=== PATIENT | female | born 1945 | race Caucasian/White ===

== ENCOUNTER → 2016-06-27 | Outpatient (CLI) | payer MEDICARE | LOC: OD 14:51 | PROVIDERS: ATTEND Nurse Practitioner Adult Health | DX: F17.218 Nicotine dependence, cigarettes, with other nicotine-induced disorders (principal) | CPT/HCPCS: 71020 ==

== ENCOUNTER → 2016-06-27 | Outpatient (CLI) | payer MEDICARE, OTHER ==
[2016-06-27 16:21] LABS: ANION GAP 12 (5-19); BLOOD UREA NITROGEN 13 mg/dL (7-20); CALCIUM 9.7 mg/dL (8.4-10.2); CARBON DIOXIDE 26 mmol/L (22-30); CHLORIDE 103 mmol/L (98-107); CREATININE RESULT 0.78 mg/dL (0.52-1.25); GLUCOSE 112 mg/dL (75-110); POTASSIUM 4.8 mmol/L (3.6-5.0)
== END ==
LOC: OD 15:03
PROVIDERS: ATTEND Internal Medicine Nephrology
DX: E87.1 Hypo-osmolality and hyponatremia (principal)
CPT/HCPCS: 36415; 80048

== ENCOUNTER 2016-12-22 07:06 | Day surgery (SDC) | payer MEDICARE, OTHER ==
[~2016-12-22 07:06] MED LIST: DEXTROSE 5%-1/2 NORMAL SALINE 1,000 ML IV PRN
[2016-12-22] MEDS ORDERED: PROPOFOL INJ 200 MG/20 ML VIAL IV ONE (07:21)
[2016-12-22] MEDS ORDERED: ALBUTEROL SULFATE 0.083% NEB 2.5 MG/3 ML AMPUL NEB ONE (09:00)
[2016-12-22 10:29] VITALS: BP 141/74
--- NOTE | 2016-12-22 12:03 | Operative Report ---
Operative Report DATE OF SURGERY: 12/22/16 Operative Report: The risks, benefits and alternatives of the procedure including risks of bleeding, perforation requiring surgery are explained to the patient detail and informed consent was obtained. Patient was taken back to the operating room and placed in the left, lateral decubital position. Timeout was called. Propofol medications administered. A rectal examination was done which did not reveal any masses, tears or fissures. An Olympus videoscope was inserted into the patient's rectum. The scope was then carefully advanced all the way to the cecum. The cecum was identified by the usual anatomical landmarks including the ileocecal valve as well as the appendiceal office. Photodocumentation is obtained. Prep is good. The scope was then sequentially pulled back via the rest segments of the colon including the ascending colon, hepatic flexure, transverse colon, splenic flexure, descending colon, and finally to the rectosigmoid portions of the colon. Retroflexion maneuvers performed in the rectum. The risks benefits and alternatives of the procedure explained to the patient in detail and informed consent is obtained.A GIF Olympus video scope was inserted into the patient's mouth and hypopharynx, the esophagus is identified intubated and insufflated, the scope was then advanced through the esophagus stomach and duodenum ,retroflexion maneuver is done, the esophagus stomach and first and second portions of the duodenum examined PREOPERATIVE DIAGNOSIS: Personal history of polyps. Han's esophagus POSTOPERATIVE DIAGNOSIS: Right side inflammation noted in the ascending colon status post biopsy. Transverse colon polyp removed via biopsy forceps. Diverticulosis. Internal hemorrhoids. Gastritis status post biopsy. Han' s esophagus status post ablation OPERATION: Colonoscopy with biopsy. EGD with ablation. EGD with biopsy SURGEON: BURT ANDREWS ANESTHESIA: LMAC TISSUE REMOVED OR ALTERED: Specimens as noted above COMPLICATIONS: None. ESTIMATED BLOOD LOSS: None. INTRAOPERATIVE FINDINGS: As described above. PROCEDURE: Patient tolerated procedure well. No immediate postprocedure complications are noted. Patient discharged in good condition. Discharge date 12/22/2016. Discharge diet: Regular. Discharge activity: Regular. 2-3 week follow-up to discuss findings. Patient is instructed to call the office or proceed to the emergency room should there be any further problems or questions. We will wait on pathology. 5 year surveillance colonoscopy.
== END 2016-12-22 10:10 | disposition home or self-care (01) ==
LOC: OROUT 07:06
PROVIDERS: ATTEND Internal Medicine Gastroenterology
PROC: 0D558ZZ Destruction of Esophagus, Via Natural or Artificial Opening Endoscopic (ICD-10-PCS; 2016-12-22)
PROC: 0DB68ZX Excision of Stomach, Via Natural or Artificial Opening Endoscopic, Diagnostic (ICD-10-PCS; principal; 2016-12-22 09:00)
PROC: 0DBF8ZX Excision of Right Large Intestine, Via Natural or Artificial Opening Endoscopic, Diagnostic (ICD-10-PCS; 2016-12-22 09:00)
PROC: 0DBL8ZX Excision of Transverse Colon, Via Natural or Artificial Opening Endoscopic, Diagnostic (ICD-10-PCS; 2016-12-22 09:00)
DX: Z12.11 Encounter for screening for malignant neoplasm of colon (principal); D12.3 Benign neoplasm of transverse colon; K52.9 Noninfective gastroenteritis and colitis, unspecified; K64.8 Other hemorrhoids; K22.719 Barrett's esophagus with dysplasia, unspecified; K29.70 Gastritis, unspecified, without bleeding; I10 Essential (primary) hypertension; M19.90 Unspecified osteoarthritis, unspecified site; Z79.899 Other long term (current) drug therapy
CPT/HCPCS: 43270; 43239; 45380; 88305 ×2; J2704; 740

== ENCOUNTER → 2017-03-04 | Outpatient (CLI) | payer MEDICARE, OTHER ==
--- NOTE | 2017-03-05 12:54 | RADIOLOGY REPORT (SQ) ---
EXAM DESCRIPTION: PET CT LIMITED COMPLETED DATE/TIME: 03/04/2017 8:32 pm REASON FOR STUDY: ABNORMAL FINDINGS IN LUNG R91.8 OTHER NONSPECIFIC ABNORMAL FINDING OF LUNG FIELD COMPARISON: Report from CT chest [facility] 02/21/2017 CT chest on [facility] 04/22/2015 RADIONUCLIDE AND DOSE: 12.5 mCi F18 FDG The route of agent administration: Intravenous FASTING BLOOD SUGAR: 96 mg/dl CONTRAST TYPE AND DOSE: No CT contrast given. TECHNIQUE: Blood glucose level was verified. Above dose of FDG was injected intravenously. 2-D seg mented attenuation correction images were obtained from the base of the skull to the midthighs. Nonc ontrast CT images were obtained for attenuation correction and fusion with emission images. CT image s were performed without oral or intravenous contrast and are not sensitive for parenchymal lesions. A series of overlapping emission PET images were obtained. Images reviewed and manipulated at [facility] work station by the radiologist. Images stored on PACS. LIMITATIONS: None. FINDINGS: HEAD AND NECK: No areas of abnormal metabolic activity in the soft tissues of the head and neck. CHEST: No areas of abnormal metabolic activity in the chest. No worrisome lung nodules or mediastina l adenopathy. A 6 mm ill-defined nodule is present in the medial aspect left upper lobe axial image [address] chest 04/22/2015. This is non metabolic but under 1 cm in size. A 6 mm posterior right upper lobe nodule is present on axial image 65 unchanged from 04/22/2015. This is non metabolic but under 1 cm in size. The right middle lobe 11 mm ground-glass lesion described on CT 02/21/2017 is no longer identified on the current study. ABDOMEN AND PELVIS: No areas of abnormal metabolic activity in the abdomen or pelvis. Expected physi ologic activity is present in the genitourinary system and bowel. PROXIMAL LOWER EXTREMITIES: No areas of abnormal metabolic activity in the soft tissues of the lower extremities. BONES: No abnormal metabolic activity in the visualized skeleton. ADDITIONAL CT FINDINGS: Trace pericardial fluid. 2.7 cm simple cyst right upper pole kidney. Mildly hyperdense complex cysts in the right lower pole kidney 5 cm diameter and left mid pole kidney 2.8 c m in diameter. Correlation with dedicated renal ultrasound recommended for followup. Colonic divert iculosis without CT signs of acute diverticulitis. OTHER: Liver background activity 2.0 SUV. Blood pool background activity 1.5 SUV. IMPRESSION: No worrisome hypermetabolic lung lesions. Findings of concern on outside CT 02/21/2017 are less than 1 cm in size, small nodules less than 1 cm could have false negative fat results. If t he patient is a smoker or former smoker, recommend follow-up with low-dose screening chest CT in 12 [facility]. Incidental finding of complex cystic lesions in the right lower pole kidney and left mid pole kidney for which dedicated renal ultrasound is recommended for further characterization. TECHNICAL DOCUMENTATION: JOB ID: [id number] [employer]- All Rights Reserved
== END ==
LOC: RAD 17:55
PROVIDERS: ATTEND Nurse Practitioner
DX: R91.8 Other nonspecific abnormal finding of lung field (principal)
CPT/HCPCS: 78814; A9552

== ENCOUNTER → 2017-06-29 | Outpatient (CLI) | payer MEDICARE, OTHER ==
[2017-06-29 12:33] LABS: ANION GAP 7 (5-19); BLOOD UREA NITROGEN 12 mg/dL (7-20); CARBON DIOXIDE 26 mmol/L (22-30); CHLORIDE 105 mmol/L (98-107); GLUCOSE 82 mg/dL (75-110); POTASSIUM 4.2 mmol/L (3.6-5.0)
== END ==
LOC: OD 11:26
PROVIDERS: ATTEND Internal Medicine Nephrology
DX: E87.1 Hypo-osmolality and hyponatremia (principal)
CPT/HCPCS: 36415; 80048

== ENCOUNTER → 2017-07-12 | Outpatient (CLI) | payer MEDICARE, OTHER ==
--- NOTE | 2017-07-12 14:16 | RADIOLOGY REPORT (SQ) ---
EXAM DESCRIPTION: CT RT LOWER EXTREMITY WITHOUT COMPLETED DATE/TIME: 07/12/2017 2:04 pm REASON FOR STUDY: RIGHT HIP PAIN (M25.551) M25.551 PAIN IN RIGHT HIP COMPARISON: PET-CT 03/04/2017 TECHNIQUE: CT scan of the right hip performed without intravenous or oral contrast. Images reviewed with soft tissue and bone windows. Reconstructed coronal and sagittal MPR images reviewed. All [facility] stored on PACS. Additional shaded surface display imaging of the right hip was generated on an independent workstatio n. All CT scanners at this facility use dose modulation, iterative reconstruction, and/or weight based d osing when appropriate to reduce radiation dose to as low as reasonably achievable (ALARA). [facility]: Dose Right [facility]: CareDose [facility]: Dose Right [facility]: Teradose 4D [facility]: [employer] RADIATION DOSE: CT Rad equipment meets quality standard of care and radiation dose reduction techniq ues were employed. CTDIvol: 6.4 mGy. DLP: 154 mGy-cm. mGy. LIMITATIONS: None. FINDINGS: Grossly normal bone density. No fracture or lytic or blastic lesion over the right hemipe lvis or right proximal femur in the field of view. Mild right hip joint space narrowing without bulky bony spurring. No radiopaque intra-articular loos e bodies. Soft tissue windows show node right hip joint effusion or iliopsoas bursa fluid collection. Limited view of the organs in the pelvis demonstrates sigmoid colon diverticuli without CT signs of a cute diverticulitis. IMPRESSION: No fracture. No lytic or blastic lesions. Mild right hip joint space narrowing TECHNICAL DOCUMENTATION: JOB ID: [id number] Quality ID # [id number]: Final reports with documentation of one or more dose reduction techniques (e.g., Au tomated exposure control, adjustment of the mA and/or kV according to patient size, use of iterative reconstruction technique) 2010 [employer]- All Rights Reserved Reading location - IP/workstation name: [email or web address]
== END ==
LOC: RAD 13:40
PROVIDERS: ATTEND Family Medicine
DX: M25.551 Pain in right hip (principal)

== ENCOUNTER → 2017-08-20 | Outpatient (CLI) | payer MEDICARE, OTHER ==
--- NOTE | 2017-08-20 14:03 | RADIOLOGY REPORT (SQ) ---
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 Coronal T2/ HASTE imaging. LIMITATIONS: None. FINDINGS: VISUALIZED UPPER ABDOMEN: Bilateral renal cysts. SEGMENTATION: No transitional anatomy. The lowest well-developed disc space is labeled L5-S1. ALIGNMENT: Anatomic. VERTEBRAE: Intact. BONE MARROW: There is diffuse marrow edema throughout the sacrum, best shown on axial series 7, image s 19-27, and additional axial STIR images 6 through 11. This is most likely related the sacral insuf ficiency fracture which is subacute and nondisplaced. Marrow signal in the adjacent innominate bones is normal. No marrow signal abnormalities worrisome for acute lumbar spine vertebral body compressi on fracture. DISC SIGNAL: Diffuse decreased T2 weighted intervertebral disc signal POSTERIOR ELEMENTS: Generally intact. No pars defect evident. HARDWARE: None in the spine. CORD AND CONUS: Normal in size and signal intensity. Conus at the T12 level. SOFT TISSUES: No aortic aneurysm seen. No bulky retroperitoneal adenopathy or mass. No paraspinal mas s or fluid. T11-12: At the upper edge of the field of view. No central or foraminal stenosis. T12-L1: No central or foraminal stenosis. L1-L2: No central or foraminal stenosis. Mild bilateral facet arthropathy. L2-L3: No central or foraminal stenosis. Mild posterior disc bulging, mild bilateral facet arthropat hy L3-L4: Borderline central canal narrowing. Mild diffuse posterior disc bulging. Moderate bilateral facet and ligament hypertrophy. There is mild bilateral inferior foraminal narrowing without exiting L3 nerve root impingement. L4-L5: Moderate to marked central canal stenosis results from broad diffuse posterior disc bulge and bony spurring and bulky bilateral facet and ligament hypertrophy. There is effacement of the CSF maritza und the lumbar nerve roots at L4-5 best shown on axial T2 image 23. Mild bilateral foraminal narrowi ng is present without exiting L4 nerve root impingement. L5-S1: Minimal posterior disc bulging, bulky bilateral facet hypertrophy. Con joint right L5 and S1 nerve root. No central stenosis. Mild right foraminal narrowing and mild left foraminal narrowing f rom facet hypertrophy without exiting L5 nerve root impingement. SACRUM: There is diffuse sacral marrow edema from sacral insufficiency fractures. This report was ca lled to Dr. Mccarthy, 1400 hours 08/20/2017. OTHER: No other significant findings. IMPRESSION: Sacral insufficiency fracture Moderate to marked central canal stenosis at L4-5 TECHNICAL DOCUMENTATION: JOB ID: [id number] [employer]- All Rights Reserved Reading location - IP/workstation name: [email or web address]
== END ==
LOC: RAD 13:51
PROVIDERS: ATTEND Family Medicine
DX: M51.36 Other intervertebral disc degeneration, lumbar region (principal)
CPT/HCPCS: 72148

== ENCOUNTER 2019-06-27 14:34 | Emergency (ER) | payer MEDICARE, OTHER ==
--- NOTE | 2019-06-27 14:41 | ER Document Report ---
ED Medical Screen (RME) - General Chief Complaint: Abnormal Lab Results Stated Complaint: ABNORMAL LABS - DR REFERRED Time Seen by Provider: 06/27/19 14:38 Primary Care Provider: LARON FLETCHER MD [Primary Care Provider] - Follow up as needed Mode of Arrival: Ambulatory Information source: Patient Notes: 74-year-old female presents to ED for abnormal labs. Daughter is with her who states she lives with her. She states she has been telling her mother that she has been acting different for several days. She states when she gets low sodium she acts this way and she has been trying to convince her to come to the hospital or to the doctor. She states she has had a sodium deficiency in the past and acted the same way. She is alert oriented respirations regular nonlabored speaking in full sentences. Daughter states that she was septic one time and acted the same way and did not come until she forced her to come. She was sent by her doctor today for low calcium and low sodium. States she drinks between 1-4 beer a day, smokes a pack a day, no illicit drugs. I have greeted and performed a rapid initial assessment of this patient. A comprehensive ED assessment and evaluation of the patient, analysis of test results and completion of medical decision making process will be conducted by an additional ED providers. TRAVEL OUTSIDE OF THE [place] IN LAST 30 DAYS: No - Related Data Allergies/Adverse Reactions: chlorpromazine HCl [From Thorazine] Allergy (Severe, Verified 12/22/16 07:40) Chest pain quinine [Quinine] Allergy (Intermediate, Verified 12/22/16 07:40) Hives Past Medical History - Past Medical History Cardiac Medical History: Reports: Hx Hypercholesterolemia, Hx Hypertension - PRESENTLY ON MEDS Denies: Hx Coronary Artery Disease, Hx Heart Attack Pulmonary Medical History: Denies: Hx Asthma, Hx Bronchitis, Hx COPD, Hx Pneumonia Neurological Medical History: Denies: Hx Cerebrovascular Accident, Hx Seizures GI Medical History: Reports: Hx Gastroesophageal Reflux Disease Musculoskeltal Medical History: Reports Hx Arthritis Psychiatric Medical History: Reports: Hx Depression Past Surgical History: Reports: Hx Urinary Tract Surgery. Denies: Hx Hysterectomy - Immunizations Hx Diphtheria, Pertussis, Tetanus Vaccination: Yes Doctor's Discharge - Discharge Referrals: LARON FLETCHER MD [Primary Care Provider] - Follow up as needed
[2019-06-27 14:44] VITALS: BP 136/64
[2019-06-27 15:14] LABS: ABSOLUTE BASOPHILS # (AUTO) 0.1 10^3/uL (0.0-0.2); ABSOLUTE EOSINOPHILS # (AUTO) 0.8 10^3/uL (0.0-0.6); ABSOLUTE MONOCYTES (AUTO) 0.6 10^3/uL (0.1-1.4); BASOPHILS % (AUTO) 1.1 % (0-2); EOSINOPHILS % (AUTO) 10.3 % (0-6); HEMATOCRIT 37.8 % (36.0-47.0); HEMOGLOBIN 13.5 g/dL (12.0-15.5); LYMPHOCYTES % (AUTO) 27.5 % (13-45); MEAN CORPUSCULAR HEMOGLOBIN 31.4 pg (27.0-33.4); MEAN CORPUSCULAR HGB CONC 35.6 g/dL (32.0-36.0); MEAN CORPUSCULAR VOLUME 88 fl (80-97); MONOCYTES % (AUTO) 7.6 % (3-13); PLATELET COUNT 329 10^3/uL (150-450); RED BLOOD COUNT 4.29 10^6/uL (3.72-5.28); RED CELL DISTRIBUTION WIDTH 14.2 % (11.5-14.0); SEGMENTED NEUTROPHILS % (AUTO) 53.5 % (42-78); TOTAL CELLS COUNTED % (AUTO) 100 %; WHITE BLOOD COUNT 7.5 10^3/uL (4.0-10.5)
[2019-06-27 15:23] LABS: APPEARANCE,URINE CLEAR; BILIRUBIN,URINE NEGATIVE (NEGATIVE); COLOR,URINE YELLOW; GLUCOSE, URINE NEGATIVE (NEGATIVE); KETONES,URINE NEGATIVE (NEGATIVE); PROTEIN,URINE 30 mg/dL (NEGATIVE); URINE SPECIFIC GRAVITY 1.017; UROBILINOGEN,URINE NEGATIVE mg/dL (<2.0)
[2019-06-27 15:29] LABS: ALBUMIN 4.4 g/dL (3.5-5.0); ALKALINE PHOSPHATASE 83 U/L (38-126); ANION GAP 12 (5-19); ASPARTATE AMINO TRANSFERASE 26 U/L (14-36); BILIRUBIN,TOTAL 0.4 mg/dL (0.2-1.3); BLOOD UREA NITROGEN 7 mg/dL (7-20); CALCIUM 9.4 mg/dL (8.4-10.2); CARBON DIOXIDE 25 mmol/L (22-30); CHLORIDE 86 mmol/L (98-107); GLUCOSE 116 mg/dL (75-110); POTASSIUM 4.2 mmol/L (3.6-5.0); TOTAL PROTEIN 7.4 g/dL (6.3-8.2)
[2019-06-27] MEDS ORDERED: SODIUM CHLORIDE 1 GM TABLET PO ONE ×2 (16:17→16:43)
--- NOTE | 2019-06-27 16:29 | ER Document Report ---
ED General - General Chief Complaint: Abnormal Lab Results Stated Complaint: ABNORMAL LABS - DR REFERRED Time Seen by Provider: 06/27/19 14:38 Primary Care Provider: LARON FLETCHER MD [COMMUNITY BASED STAFF] - Follow up as needed Mode of Arrival: Ambulatory Notes: 74-year-old woman presents to the emergency department with a history of sent to the emergency department because her sodium was found to be 124 in the doctor's office lab report. Patient and daughter states that they were called and told to come to the emergency department because of the abnormal lab. Daughter notes that her mom has had low sodiums in the past and had previously been on sodium tablets, tomato juice twice daily and added salt to her food. Approximately 1 year ago she got a new physician and after some evaluation the decision was made to discontinue the sodium. She denies dizziness, headache, seizures or shakiness. Daughter notes that her mom has complained of some fatigue and at times seems a little confused. TRAVEL OUTSIDE OF THE [place] IN LAST 30 DAYS: No - Related Data Allergies/Adverse Reactions: chlorpromazine HCl [From Thorazine] Allergy (Severe, Verified 12/22/16 07:40) Chest pain quinine [Quinine] Allergy (Intermediate, Verified 12/22/16 07:40) Hives Past Medical History - General Information source: Patient - Social History Smoking Status: Current Every Day Smoker Chew tobacco use (# tins/day): No Frequency of alcohol use: Heavy Drug Abuse: None Family History: Reviewed & Not Pertinent Patient has suicidal ideation: No Patient has homicidal ideation: No - Past Medical History Cardiac Medical History: Reports: Hx Hypercholesterolemia, Hx Hypertension - PRESENTLY ON MEDS Denies: Hx Coronary Artery Disease, Hx Heart Attack Pulmonary Medical History: Denies: Hx Asthma, Hx Bronchitis, Hx COPD, Hx Pneumonia Neurological Medical History: Denies: Hx Cerebrovascular Accident, Hx Seizures GI Medical History: Reports: Hx Gastroesophageal Reflux Disease Musculoskeletal Medical History: Reports Hx Arthritis Psychiatric Medical History: Reports: Hx Depression Past Surgical History: Reports: Hx Urinary Tract Surgery. Denies: Hx Hysterectomy - Immunizations Hx Diphtheria, Pertussis, Tetanus Vaccination: Yes Hx Pneumococcal Vaccination: 02/07/15 Review of Systems - Review of Systems Notes: Constitutional: Negative for fever. HENT: Negative for sore throat. Eyes: Negative for visual changes. Cardiovascular: Negative for chest pain. Respiratory: Negative for shortness of breath. Gastrointestinal: Negative for abdominal pain, vomiting or diarrhea. Genitourinary: Negative for dysuria. Musculoskeletal: Negative for back pain. Skin: Negative for rash. Neurological: Negative for headaches, weakness or numbness. 10 point ROS negative except as marked above and in HPI. Physical Exam - Vital signs Vitals: Temp Pulse Resp BP Pulse Ox 97.5 F 86 17 136/64 H 97 06/27/19 14:41 06/27/19 14:41 06/27/19 14:41 06/27/19 14:41 06/27/19 14:41 - Notes Notes: PHYSICAL EXAMINATION: Physical Exam: General: Well-nourished well-developed 74-year-old woman in no acute distress HEENT: NC/AT, pupils equal round and reactive to light, MM moist,nares clear, oropharynx clear, airway patent Neck: supple, no adenopathy, no masses. Good range of motion Lungs: clear, no wheezing, no rales no rhonchi CVS: Regular rate and rhythm no murmur gallop or rub Abdomen: Soft, active, nontender, no masses, no hepatosplenomegaly Ext: No edema, clubbing or cyanosis. Neuro: Alert and responsive, moving all 4 extremities on command, cranial nerves intact, no focal findings Skin: Intact no open lesions, no rash PSYCH: Normal mood, normal affect. Course - Re-evaluation Re-evalutation: 06/27/19 16:31 Patient is given a gram of sodium via a sodium tablet today. I discussed with her liberalizing her sodium intake and also using the tomato juice. Apparently have a sodium prescription there are pharmacy, however, the pharmacy did not have the medication and it has to be ordered will not be available until Sunday. - Vital Signs Vital signs: Temp Pulse Resp BP Pulse Ox 97.5 F 86 17 136/64 H 97 06/27/19 14:41 06/27/19 14:41 06/27/19 14:41 06/27/19 14:41 06/27/19 14:41 - Laboratory Result Diagrams: 06/27/19 14:56 06/27/19 14:56 Laboratory results interpreted by me: 06/27/19 06/27/19 06/27/19 14:56 14:56 14:56 RDW 14.2 H Eos % (Auto) 10.3 H Absolute Eos (auto) 0.8 H Sodium 123.1 L Chloride 86 L Glucose 116 H Urine Protein 30 H Discharge - Discharge Clinical Impression: Alcohol abuse, Hyponatremia Condition: Good Disposition: HOME, SELF-CARE Instructions: Hyponatremia ([facility]) Additional Instructions: You were diagnosed with a low sodium in the emergency department today, please restrict your intake of fluids, liberalize your salt intake and may add sodium to your food. Please follow-up with your doctor next week for a repeat sodium level. If you develop symptoms, other concerns or difficulties you may return to the emergency department. Referrals: LARON FLETCHER MD [COMMUNITY BASED STAFF] - Follow up as needed
== END 2019-06-27 17:05 | disposition home or self-care (01) ==
LOC: ER 14:34
DX: F10.10 Alcohol abuse, uncomplicated (principal); E87.1 Hypo-osmolality and hyponatremia; F17.200 Nicotine dependence, unspecified, uncomplicated; E78.00 Pure hypercholesterolemia, unspecified
CPT/HCPCS: 99283; 36415; 83735; 85025; 80053; 81001; A9270; J3490

== ENCOUNTER → 2019-08-05 | Outpatient (CLI) | payer MEDICARE, OTHER ==
[2019-08-05 10:32] LABS: ANION GAP 9 (5-19); BLOOD UREA NITROGEN 17 mg/dL (7-20); CALCIUM 9.2 mg/dL (8.4-10.2); CARBON DIOXIDE 27 mmol/L (22-30); CHLORIDE 92 mmol/L (98-107); GLUCOSE 108 mg/dL (75-110); POTASSIUM 4.7 mmol/L (3.6-5.0)
== END ==
LOC: OD 09:38
PROVIDERS: ATTEND Internal Medicine Nephrology
DX: I10 Essential (primary) hypertension (principal); E87.1 Hypo-osmolality and hyponatremia
CPT/HCPCS: 36415; 80048

== ENCOUNTER → 2019-08-12 | Outpatient (CLI) | payer MEDICARE, OTHER ==
[2019-08-12 11:12] LABS: ANION GAP 8 (5-19); BLOOD UREA NITROGEN 13 mg/dL (7-20); CALCIUM 8.9 mg/dL (8.4-10.2); CARBON DIOXIDE 25 mmol/L (22-30); CHLORIDE 92 mmol/L (98-107); GLUCOSE 98 mg/dL (75-110); POTASSIUM 4.5 mmol/L (3.6-5.0)
== END ==
LOC: OD 09:28
PROVIDERS: ATTEND Internal Medicine Nephrology
DX: E87.1 Hypo-osmolality and hyponatremia (principal); I10 Essential (primary) hypertension
CPT/HCPCS: 36415; 80048

== ENCOUNTER → 2019-08-19 | Outpatient (CLI) | payer MEDICARE, OTHER ==
[2019-08-19 11:28] LABS: ANION GAP 7 (5-19); BLOOD UREA NITROGEN 11 mg/dL (7-20); CALCIUM 8.9 mg/dL (8.4-10.2); CARBON DIOXIDE 27 mmol/L (22-30); CHLORIDE 98 mmol/L (98-107); GLUCOSE 98 mg/dL (75-110); POTASSIUM 4.2 mmol/L (3.6-5.0)
== END ==
LOC: OD 10:16
PROVIDERS: ATTEND Internal Medicine Nephrology
DX: E87.1 Hypo-osmolality and hyponatremia (principal); I10 Essential (primary) hypertension
CPT/HCPCS: 36415; 80048

== ENCOUNTER 2019-10-02 10:23 | Inpatient (IN) | payer MEDICARE, OTHER ==
[2019-10-02] MEDS ORDERED: MAG HYDROX/AL HYDROX/SIMETH SUSP 30 ML UDCUP PO PRN (11:59)
[2019-10-02] MEDS ORDERED: MAGNESIUM HYDROXIDE SUSP 30 ML UDCUP PO PRN (11:59)
[2019-10-02] MEDS ORDERED: ACETAMINOPHEN 325 MG TABLET PO PRN (11:59)
[2019-10-02] MEDS ORDERED: IPRATROPIUM/ALBUTEROL 0.5-2.5 MG/3 ML AMPUL NEB PRN (11:59)
[2019-10-02] MEDS ORDERED: TRAZODONE HCL 50 MG TABLET PO PRN (12:07)
[2019-10-02] MEDS ORDERED: POLYETHYLENE GLYCOL 3350 POWDER 17 GM/1 PACKET PO PRN (12:07)
[2019-10-02] MEDS ORDERED: NICOTINE 21 MG/24 HR PATCH.TD24 TD PRN (12:16)
--- NOTE | 2019-10-02 12:25 | PDOC H&P ---
History of Present Illness Admission Date/PCP: 10/02/19 10:23 MAHAD SALAZRA MD Patient complains of: Hyponatremia History of Present Illness: SAE NORRIS is a 74 year old female referred by Dr. Salazar for direct admission to initiate tolvaptan therapy. She has a history of hyponatremia as well as hypertension, depression, insomnia, gastroesophageal reflux disease, allergies and a smokers cough. She states that she felt woozy earlier and her blood pressure in fact is low today. She will be admitted and monitored with daily laboratory studies for the initiation of tolvaptan therapy. Her demeclocycline will be discontinued. We will continue the remainder of her medications including pain medications for a recent right carpal tunnel surgery. Past Medical History Cardiac Medical History: Reports: Hyperlipidema, Hypertension - PRESENTLY ON MEDS Denies: Coronary Artery Disease, Myocardial Infarction Pulmonary Medical History: Reports: Chronic Obstructive Pulmonary Disease (COPD) Denies: Asthma, Bronchitis, Pneumonia Neurological Medical History: Denies: Seizures Renal/ Medical History: Reports: Other - Hyponatremia GI Medical History: Reports: Gastroesophageal Reflux Disease Musculoskeltal Medical History: Reports: Arthritis Psychiatric Medical History: Reports: Depression, Tobacco Dependency Hematology: Denies: Anemia Infectious Medical History: Reports: None Past Surgical History Past Surgical History: Reports: Orthopedic Surgery - Right carpal tunnel, Tonsillectomy, Tubal Ligation, Other - Breast biopsy Denies: Hysterectomy, Pacemaker Social History Information Source: Patient, Outside Facility Records Lives with: Alone Smoking Status: Current Every Day Smoker Cigarettes Packs Per Day: 1 Electronic Cigarette use?: No Frequency of Alcohol Use: None Hx Recreational Drug Use: No Drugs: None Hx Prescription Drug Abuse: No - Advance Directive Resuscitation Status: Full Code Surrogate healthcare decision maker:: Has a power of commercial litigation attorney Family History Family History: Hypertension, Malignancy, Other - Dementia, osteoporosis, Parental Family History Reviewed: Yes Children Family History Reviewed: Yes Sibling(s) Family History Reviewed.: Yes Medication/Allergy Home Medications: Cetirizine HCl [Zyrtec 10 mg Tablet] 10 mg PO DAILY 02/28/14 Montelukast Sodium [Singulair 10 mg Tablet] 10 mg PO QHS 02/28/14 Folic Acid [Folvite 1 mg Tablet] 1 mg PO DAILY #30 tablet 03/03/14 Amlodipine Besylate 5 mg PO DAILY 04/15/15 Lisinopril 20 mg PO QHS 04/15/15 Olanzapine [Zyprexa 2.5 mg Tablet] 7.5 mg PO QHS 04/15/15 Demeclocycline HCl [Declomycin] 150 mg PO Q12 12/20/16 Bupropion HCl [Bupropion Xl] 150 mg PO DAILY 07/08/19 Cyanocobalamin (Vitamin B-12) [Vitamin B-12 1000 mcg Tablet] 1,000 mcg PO DAILY 07/08/19 Ergocalciferol (Vitamin D2) [Drisdol 50,000 unit (1.25MG) Capsule] 50,000 unit PO .Sun OF MONTH 07/08/19 Fluticasone Propionate [Flonase Nasal Leonidas 50 Mcg/Leonidas 16 gm] 1 spray NAREB Q12 07/08/19 Omeprazole 20 mg PO QAM 07/08/19 Thiamine HCl [Thiamine 100 mg Tablet] 100 mg PO DAILY 07/08/19 Acetaminophen [Tylenol 325 mg Tablet] 650 mg PO Q4HP PRN tablet 07/12/19 Aspirin [Ecotrin 81 mg EC Tablet] 81 mg PO DAILY tabec 07/12/19 Docusate Sodium [Colace 100 mg Capsule] 100 mg PO DAILY capsule 07/12/19 Mag Hydrox/Al Hydrox/Simeth [Maalox Plus Susp 30 Udcup] 30 ml PO Q6HP PRN udc 07/12/19 Multivitamin [Tab-A-Caryl (Multiple Vitamin) Tablet] 1 tab PO DAILY tablet 07/12/19 Paroxetine HCl [Paxil 20 mg Tablet] 20 mg PO DAILY 30 Days #30 tablet 07/12/19 Trazodone HCl 25 mg PO QHS 30 Days #15 tablet 07/12/19 Allergies/Adverse Reactions: chlorpromazine HCl [From Thorazine] Allergy (Severe, Verified 12/22/16 07:40) Chest pain quinine [Quinine] Allergy (Intermediate, Verified 12/22/16 07:40) Hives Review of Systems All systems: reviewed and no additional remarkable complaints except as stated Constitutional: PRESENT: other - Lightheaded Respiratory: PRESENT: cough Gastrointestinal: PRESENT: constipation Musculoskeletal: PRESENT: other - Right wrist pain Psychiatric: PRESENT: depression Allergic/Immunologic: PRESENT: seasonal rhinorrhea Physical Exam General appearance: PRESENT: no acute distress, cooperative, well-developed Head exam: PRESENT: atraumatic, normocephalic Eye exam: PRESENT: conjunctiva pale, EOMI. ABSENT: scleral icterus Ear exam: PRESENT: normal external ear exam. ABSENT: bleeding, drainage Mouth exam: PRESENT: moist, tongue midline Neck exam: ABSENT: JVD, lymphadenopathy, thyromegaly, tracheostomy Respiratory exam: PRESENT: clear to auscultation zamzam, symmetrical, unlabored. ABSENT: accessory muscle use, prolonged expiratory phas, rales, rhonchi, tachypnea, wheezes Cardiovascular exam: PRESENT: RRR, +S1, +S2, systolic murmur - 2/6. ABSENT: diastolic murmur, irregular rhythm GI/Abdominal exam: PRESENT: normal bowel sounds, soft. ABSENT: distended, guarding, tenderness Rectal exam: PRESENT: deferred Gentrourinary exam: ABSENT: indwelling catheter Extremities exam: ABSENT: joint swelling, pedal edema Musculoskeletal exam: PRESENT: ambulatory, normal inspection. ABSENT: deformity Neurological exam: PRESENT: alert, awake, oriented to person, oriented to place, oriented to situation, CN II-XII grossly intact. ABSENT: altered Psychiatric exam: PRESENT: appropriate affect. ABSENT: agitated, anxious Focused psych exam: ABSENT: delusional, paranoid, restlessness Skin exam: PRESENT: dry, normal color, warm. ABSENT: rash Assessment and Plan - Diagnosis (1) Hyponatremia Is this a current diagnosis for this admission?: Yes Plan: 10/02/2019 Dr. Salazar has been treating the patient for chronic hyponatremia. It was felt to be due to excessive beer intake initially. Patient reports that she is no longer drinking beer. Her sodium was still only 122. Dr. Salazar had her on demeclocycline but this has not been as effective as she had hoped. The patient is being hospitalized to initiate a trial of tolvaptan. We will need to monitor her serum sodium correction as well as LFTs for potential adverse effect of the medication. (2) Hypertension Qualifiers: Hypertension type: essential hypertension Qualified Code(s): I10 - Essential (primary) hypertension Is this a current diagnosis for this admission?: Yes Plan: 10/02/2019 Patient is normally on amlodipine and lisinopril. Her blood pressure was actually low at the time of admission. She will be getting IV fluids. I did put parameters to hold the amlodipine and lisinopril if her blood pressure was below a certain level. Continue to monitor vital signs. (3) Hyperkalemia Is this a current diagnosis for this admission?: Yes Plan: 10/02/2019 The hyperkalemia is mild. She will be getting intravenous fluids and therefore no Kayexalate at this time but I would rather repeat her chemistries in the morning. In addition she does take lisinopril for her hypertension and this could be contributing to elevated serum potassium levels. (4) Allergic rhinitis Qualifiers: Allergic rhinitis trigger: unspecified Allergic rhinitis seasonality: unspecified Qualified Code(s): J30.9 - Allergic rhinitis, unspecified Is this a current diagnosis for this admission?: Yes Plan: 10/02/2019 The patient is on Flonase and Singulair. She reports no inhaler usage at home. She still smokes 1 pack of cigarettes daily. This may be contributing to the chronic rhinitis. We will continue the Flonase and Singulair at this time. (5) Hypoalbuminemia Is this a current diagnosis for this admission?: Yes Plan: 10/02/2019 Mildly decreased albumin. No need for intravenous albumin at this time. We will continue to monitor. Possibly related to chronic illness, her history of alcohol use and elevated transaminases. (6) Insomnia Qualifiers: Insomnia type: unspecified Qualified Code(s): G47.00 - Insomnia, unspecified Is this a current diagnosis for this admission?: Yes Plan: 10/02/2019 The patient reports a long history of difficulty sleeping. We will continue her trazodone 50 mg at bedtime if needed. Zyprexa can also have a sedating effect. (7) Right wrist pain Is this a current diagnosis for this admission?: Yes Plan: 10/02/2019 From recent carpal tunnel surgery. We will continue the oxycodone at 5 mg. The patient also has gabapentin available as needed. If the oxycodone is not effective I will resume the gabapentin. (8) Chronic depression Is this a current diagnosis for this admission?: Yes Plan: 10/02/2019 Continue bupropion and Zyprexa for an anxiety component (9) Tobacco dependence due to cigarettes Is this a current diagnosis for this admission?: Yes Plan: 10/02/2019 Nicotine patch (10) Gastroesophageal reflux disease Qualifiers: Esophagitis presence: without esophagitis Qualified Code(s): K21.9 - Gastro-esophageal reflux disease without esophagitis Is this a current diagnosis for this admission?: Yes Plan: 10/02/2019 Continue Protonix (11) Elevated transaminase level Is this a current diagnosis for this admission?: Yes Plan: 10/02/2019 We will monitor LFTs especially since the potential side effect of tolvaptan is liver irritation. - Time Time Spent with patient: 35 or more minutes Smoking Cessation Education: 3 to 10 minutes Medications reviewed and adjusted accordingly: Yes Anticipated discharge: Home - Inpatient Certification Based on my medical assessment, after consideration of the patient's comorbidities, presenting symptoms, or acuity I expect that the services needed warrant INPATIENT care.: Yes I certify that my determination is in accordance with my understanding of Medicare's requirements for reasonable and necessary INPATIENT services [42 CFR 412.3e].: Yes Medical Necessity: Need Close Monitoring Due to Risk of Patient Decompensation, Need For IV Fluids, Need for Pain Control, Risk of Complication if Not Cared For in Hospital Post Hospital Care: D/C Home Hospice Rn Documentation
[2019-10-02 13:07] LABS: ABSOLUTE EOSINOPHILS # (AUTO) 0.2 10^3/uL (0.0-0.6); ABSOLUTE LYMPHOCYTES (AUTO) 1.1 10^3/uL (0.5-4.7); ABSOLUTE MONOCYTES (AUTO) 0.3 10^3/uL (0.1-1.4); ABSOLUTE NEUT (AUTO) 3.8 10^3/uL (1.7-8.2); BASOPHILS % (AUTO) 0.3 % (0-2); EOSINOPHILS % (AUTO) 2.9 % (0-6); HEMATOCRIT 32.9 % (36.0-47.0); HEMOGLOBIN 11.4 g/dL (12.0-15.5); LYMPHOCYTES % (AUTO) 19.9 % (13-45); MEAN CORPUSCULAR HEMOGLOBIN 30.8 pg (27.0-33.4); MEAN CORPUSCULAR HGB CONC 34.7 g/dL (32.0-36.0); MEAN CORPUSCULAR VOLUME 89 fl (80-97); MONOCYTES % (AUTO) 6.4 % (3-13); PLATELET COUNT 346 10^3/uL (150-450); RED BLOOD COUNT 3.72 10^6/uL (3.72-5.28); RED CELL DISTRIBUTION WIDTH 14.9 % (11.5-14.0); SEGMENTED NEUTROPHILS % (AUTO) 70.5 % (42-78); TOTAL CELLS COUNTED % (AUTO) 100 %; WHITE BLOOD COUNT 5.4 10^3/uL (4.0-10.5)
[2019-10-02 13:36] LABS: ALBUMIN 3.1 g/dL (3.5-5.0); ALKALINE PHOSPHATASE 54 U/L (38-126); ASPARTATE AMINO TRANSFERASE 74 U/L (14-36); BILIRUBIN,DIRECT 0.1 mg/dL (0.0-0.4); BILIRUBIN,TOTAL 0.4 mg/dL (0.2-1.3); BLOOD UREA NITROGEN 18 mg/dL (7-20); CALCIUM 8.9 mg/dL (8.4-10.2); GLUCOSE 95 mg/dL (75-110); POTASSIUM 5.2 mmol/L (3.6-5.0); TOTAL PROTEIN 5.9 g/dL (6.3-8.2)
[2019-10-02 13:42] LABS: ANION GAP 7 (5-19); CARBON DIOXIDE 23 mmol/L (22-30); CHLORIDE 93 mmol/L (98-107)
[2019-10-02] MEDS: HEPARIN SOD (PORCINE) 5,000 UNIT/ML 1 ML VIAL SUBCUT SCH ×4 (14:00→22:43)
[2019-10-02] MEDS: NORMAL SALINE 1000 ML 1,000 ML IV ONE ×2 (14:25→15:42)
[2019-10-02] MEDS: NORMAL SALINE 1000 ML 1,000 ML IV PRN ×2 (14:31→22:33)
[2019-10-02] MEDS: TOLVAPTAN 15 MG TABLET PO SCH (14:32)
[2019-10-02 15:04] LABS: APPEARANCE,URINE CLEAR; BILIRUBIN,URINE NEGATIVE (NEGATIVE); COLOR,URINE YELLOW; GLUCOSE, URINE NEGATIVE (NEGATIVE); KETONES,URINE NEGATIVE (NEGATIVE); PROTEIN,URINE NEGATIVE (NEGATIVE); URINE SPECIFIC GRAVITY 1.015; UROBILINOGEN,URINE NEGATIVE mg/dL (<2.0)
--- NOTE | 2019-10-02 15:50 | PDOC CONSULTATION ---
Consultation Consult Date: 10/02/19 Provider Consulted: Priya DALE Consult reason:: Hyponatremia History of Present Illness Admission Date/PCP: 10/02/19 10:23 MAHAD SALAZAR MD History of Present Illness: SAE NORRIS is a 74 year old female with history of severe hyponatremia, several hospital admissions and previous beer drinking (3 per day), copd and current smoker. She was directly admitted into the hospital per Dr. Salazar's request due to hyponatremia and a sodium of 123. She is a well known patient to Dr. Salazar. She previously was on demeclocycline 2 tabs bid. She has recently decreased it on her own to one table qd. At the time the sodium was in the low 120s when her primary care checked it. That was when she was called by our office and told to increase her demeclocycline back to her prescribed dose of 2 bid. She was then to repeat it, which is where the 123 sodium was from. At that time she was directed to the hospital for admission, which is where she is now. She claims to be doing well. She currently has no s/s of hyponatremia. She denies nausea, vomiting or weakness. Besides not taking her medication as prescribed, she denies diarrhea, previous n/v, drinking alcohol again. She claims to have not drank in over two months. She admits to drinking no more than 40 ounces of water a day. She does still drink 3 10ounce cans of tomato juice a day. Past Medical History Cardiac Medical History: Reports: Hyperlipidemia Denies: Coronary Artery Disease, Myocardial Infarction Pulmonary Medical History: Reports: Chronic Obstructive Pulmonary Disease (COPD) Denies: Asthma, Bronchitis, Pneumonia Neurological Medical History: Denies: Seizures Renal/ Medical History: Reports: Other - Hyponatremia GI Medical History: Reports: Gastroesophageal Reflux Disease Musculoskeltal Medical History: Reports: Arthritis Psychiatric Medical History: Reports: Depression, Tobacco Dependency Infectious Medical History: Reports: None Past Surgical History Past Surgical History: Reports: Orthopedic Surgery - Right carpal tunnel, Tonsillectomy, Tubal Ligation, Other - Breast biopsy Denies: Hysterectomy, Pacemaker Social History Lives with: Alone Smoking Status: Current Every Day Smoker Cigarettes Packs Per Day: 1 Electronic Cigarette use?: No Frequency of Alcohol Use: None Hx Recreational Drug Use: No Drugs: None Hx Prescription Drug Abuse: No - Advance Directive Resuscitation Status: Full Code Family History Family History: None Parental Family History Reviewed: Yes Children Family History Reviewed: Yes Sibling(s) Family History Reviewed.: Yes Medication/Allergy Home Medications: Cetirizine HCl [Zyrtec 10 mg Tablet] 10 mg PO DAILY 02/28/14 Montelukast Sodium [Singulair 10 mg Tablet] 10 mg PO QHS 02/28/14 Folic Acid [Folvite 1 mg Tablet] 1 mg PO DAILY #30 tablet 03/03/14 Amlodipine Besylate 5 mg PO DAILY 04/15/15 Lisinopril 20 mg PO QHS 04/15/15 Olanzapine [Zyprexa 2.5 mg Tablet] 7.5 mg PO QHS 04/15/15 Demeclocycline HCl [Declomycin] 150 mg PO Q12 12/20/16 Bupropion HCl [Bupropion Xl] 150 mg PO DAILY 07/08/19 Cyanocobalamin (Vitamin B-12) [Vitamin B-12 1000 mcg Tablet] 1,000 mcg PO DAILY 07/08/19 Ergocalciferol (Vitamin D2) [Drisdol 50,000 unit (1.25MG) Capsule] 50,000 unit PO .Sun OF MONTH 07/08/19 Fluticasone Propionate [Flonase Nasal [place] 50 Mcg/[place] 16 gm] 1 spray NAREB Q12 07/08/19 Omeprazole 20 mg PO QAM 07/08/19 Thiamine HCl [Thiamine 100 mg Tablet] 100 mg PO DAILY 07/08/19 Acetaminophen [Tylenol 325 mg Tablet] 650 mg PO Q4HP PRN tablet 07/12/19 Aspirin [Ecotrin 81 mg EC Tablet] 81 mg PO DAILY tabec 07/12/19 Docusate Sodium [Colace 100 mg Capsule] 100 mg PO DAILY capsule 07/12/19 Mag Hydrox/Al Hydrox/Simeth [Maalox Plus Susp 30 Udcup] 30 ml PO Q6HP PRN udc 07/12/19 Multivitamin [Tab-A-Caryl (Multiple Vitamin) Tablet] 1 tab PO DAILY tablet 07/12/19 Paroxetine HCl [Paxil 20 mg Tablet] 20 mg PO DAILY 30 Days #30 tablet 07/12/19 Trazodone HCl 25 mg PO QHS 30 Days #15 tablet 07/12/19 Allergies/Adverse Reactions: chlorpromazine HCl [From Thorazine] Allergy (Severe, Verified 12/22/16 07:40) Chest pain quinine [Quinine] Allergy (Intermediate, Verified 12/22/16 07:40) Hives Review of Systems Constitutional: ABSENT: chills, fever(s), weakness Eyes: ABSENT: visual disturbances Cardiovascular: ABSENT: chest pain, dyspnea on exertion, edema, orthropnea, palpitations Respiratory: PRESENT: cough, dyspnea - -from the COPD, sputum Gastrointestinal: ABSENT: constipation, diarrhea, nausea, vomiting Genitourinary: ABSENT: difficulty urinating, dysuria, nocturia Musculoskeletal: PRESENT: joint swelling Neurological: PRESENT: tingling. ABSENT: confusion, convulsions, dizziness, weakness Physical Exam Vital Signs: Temp Pulse Resp BP Pulse Ox 97.5 F 76 12 88/40 L 98 10/02/19 11:07 10/02/19 11:07 10/02/19 11:07 10/02/19 11:07 10/02/19 11:07 Intake & Output 10/01/19 10/02/19 10/03/19 06:59 06:59 06:59 Weight 58.8 kg General appearance: PRESENT: no acute distress, well-developed, well-nourished Mouth exam: PRESENT: moist, neck supple Neck exam: ABSENT: JVD, tracheal deviation Respiratory exam: PRESENT: crackles - -course crackles through out, wheezes. ABSENT: clear to auscultation zamzam, rhonchi Cardiovascular exam: PRESENT: +S1, +S2. ABSENT: systolic murmur GI/Abdominal exam: PRESENT: soft. ABSENT: tenderness Extremities exam: PRESENT: other - -bandage on the palm of her right hand due to recent carpel tunnel surgery. ABSENT: pedal edema, +1 edema, +2 edema Musculoskeletal exam: PRESENT: normal inspection Neurological exam: PRESENT: alert, awake, oriented to person, oriented to place, oriented to time, oriented to situation Skin exam: PRESENT: dry, intact, warm. ABSENT: cyanosis Results Laboratory Results: 10/02/19 12:50 10/02/19 12:50 10/02/19 10/02/19 12:50 12:50 WBC 5.4 RBC 3.72 Hgb 11.4 L Hct 32.9 L MCV 89 MCH 30.8 MCHC 34.7 RDW 14.9 H Plt Count 346 Seg Neutrophils % 70.5 Sodium 122.5 L Potassium 5.2 H Chloride 93 L Carbon Dioxide 23 Anion Gap 7 BUN 18 Creatinine 0.44 L Est GFR ( Amer) > 60 Glucose 95 Calcium 8.9 Magnesium 1.7 Total Bilirubin 0.4 AST 74 H Alkaline Phosphatase 54 Total Protein 5.9 L Albumin 3.1 L Assessment & Plan - Diagnosis (1) Hyponatremia Plan: Previously in the past she was diagnosed with a combination of beer podimania, SIADH, and psycotropic drug induced hyponatremia. According to the patient she is not drinking alcohol and she is not drinking excessive amounts of water. Will look to get a serum, urine osmolality, serum, urine sodium to confirm cause. After getting the labs will start normal saline at 100mL an hour and give tolvaptan. Monitor sodium closely. If SIADH is underlining cause may want to rule out cancer as cause with her history of smoking. (2) Anxiety Plan: stable (3) Tobacco use disorder Plan: advised on the need to quite smoking. - Notes Notes: Discussed case with Dr. Dale and Dr. Salazar
[2019-10-02 16:30] LABS: URINE SODIUM 87 mmol/L (30-90)
[2019-10-02 16:37] LABS: OSMOLALITY,URINE 561 mOsm/kg (300-900)
[2019-10-02] MEDS: PANTOPRAZOLE SODIUM 40 MG TABLET.DR PO SCH (17:43)
[2019-10-02] MEDS: DOCUSATE SODIUM 100 MG CAPSULE PO SCH (17:43)
[2019-10-02] MEDS: OXYCODONE HCL IR 5 MG TABLET PO PRN (17:58)
[2019-10-02] MEDS: ATORVASTATIN CALCIUM 20 MG TABLET PO SCH (21:39)
[2019-10-02] MEDS: MONTELUKAST SODIUM 10 MG TABLET PO SCH (21:39)
[2019-10-02] MEDS: FLUTICASONE NASAL SPRAY 50 MCG/SPRY 120 SPRAY/16 GM NASL SCH (21:40)
[2019-10-02] MEDS: BUPROPION HCL 75 MG TABLET PO SCH (21:41)
[2019-10-02] MEDS: OLANZAPINE 2.5 MG TABLET PO SCH (21:42)
[2019-10-02] MEDS: LISINOPRIL 10 MG TABLET PO SCH (22:41)
[2019-10-03] MEDS: OXYCODONE HCL IR 5 MG TABLET PO PRN ×2 (02:04→21:54)
[2019-10-03] MEDS: PANTOPRAZOLE SODIUM 40 MG TABLET.DR PO SCH ×2 (05:25→18:46)
[2019-10-03] MEDS: HEPARIN SOD (PORCINE) 5,000 UNIT/ML 1 ML VIAL SUBCUT SCH ×3 (06:07→21:44)
[2019-10-03 06:22] LABS: ABSOLUTE BASOPHILS # (AUTO) 0.1 10^3/uL (0.0-0.2); ABSOLUTE EOSINOPHILS # (AUTO) 0.2 10^3/uL (0.0-0.6); ABSOLUTE LYMPHOCYTES (AUTO) 1.4 10^3/uL (0.5-4.7); ABSOLUTE MONOCYTES (AUTO) 0.4 10^3/uL (0.1-1.4); ABSOLUTE NEUT (AUTO) 2.9 10^3/uL (1.7-8.2); EOSINOPHILS % (AUTO) 3.9 % (0-6); HEMOGLOBIN 11.9 g/dL (12.0-15.5); LYMPHOCYTES % (AUTO) 27.7 % (13-45); MEAN CORPUSCULAR HEMOGLOBIN 30.3 pg (27.0-33.4); MEAN CORPUSCULAR HGB CONC 34.1 g/dL (32.0-36.0); MEAN CORPUSCULAR VOLUME 89 fl (80-97); MONOCYTES % (AUTO) 7.9 % (3-13); PLATELET COUNT 380 10^3/uL (150-450); RED BLOOD COUNT 3.94 10^6/uL (3.72-5.28); RED CELL DISTRIBUTION WIDTH 14.9 % (11.5-14.0); SEGMENTED NEUTROPHILS % (AUTO) 59.5 % (42-78); TOTAL CELLS COUNTED % (AUTO) 100 %; WHITE BLOOD COUNT 4.9 10^3/uL (4.0-10.5)
[2019-10-03 06:44] LABS: ANION GAP 5 (5-19); BLOOD UREA NITROGEN 12 mg/dL (7-20); CALCIUM 9.1 mg/dL (8.4-10.2); CARBON DIOXIDE 27 mmol/L (22-30); CHLORIDE 102 mmol/L (98-107); GLUCOSE 92 mg/dL (75-110); POTASSIUM 4.7 mmol/L (3.6-5.0)
[2019-10-03] MEDS: GABAPENTIN 300 MG CAPSULE PO SCH ×3 (09:26→21:35)
[2019-10-03] MEDS: AMLODIPINE BESYLATE 5 MG TABLET PO SCH (09:28)
[2019-10-03] MEDS: DOCUSATE SODIUM 100 MG CAPSULE PO SCH ×2 (09:29→18:46)
[2019-10-03] MEDS: CETIRIZINE 10 MG TABLET PO SCH (09:29)
[2019-10-03] MEDS: CHOLECALCIFEROL (D3) 1,000 UNIT (25 MCG) TABLET PO SCH (09:29)
[2019-10-03] MEDS: FOLIC ACID 1 MG TABLET PO SCH (09:29)
[2019-10-03] MEDS: CYANOCOBALAMIN (VITAMIN B-12) 1,000 MCG TABLET PO SCH (09:29)
[2019-10-03] MEDS: FLUTICASONE NASAL SPRAY 50 MCG/SPRY 120 SPRAY/16 GM NASL SCH ×2 (09:30→21:34)
[2019-10-03] MEDS: BUPROPION HCL 75 MG TABLET PO SCH ×2 (09:30→21:34)
[2019-10-03] MEDS: TOLVAPTAN 15 MG TABLET PO SCH (09:30)
[2019-10-03] MEDS ORDERED: ALBUTEROL SULFATE HFA (90 MCG/PUFF) 8 GM MDI IH PRN (11:32)
[2019-10-03] MEDS ORDERED: GUAIFENESIN SYRP 200 MG/10 ML UDC PO PRN (11:33)
--- NOTE | 2019-10-03 11:38 | PDOC PROGRESS REPORT ---
Subjective Progress Note for:: 10/03/19 Subjective:: Patient is resting in bed. She complains of a cough. She characterizes it as a smoker's cough. She does not appear to be dyspneic. Reason For Visit: HYPONATREMIA Physical Exam Vital Signs: Temp Pulse Resp BP Pulse Ox 98.6 F 104 H 16 134/71 H 93 10/03/19 07:35 10/03/19 08:47 10/03/19 08:47 10/03/19 07:35 10/03/19 08:47 Intake & Output 10/02/19 10/03/19 10/04/19 06:59 06:59 06:59 Intake Total 1741 Output Total 5350 Balance -3609 Weight 58.8 kg General appearance: PRESENT: no acute distress, cooperative, well-developed Head exam: PRESENT: atraumatic, normocephalic Eye exam: PRESENT: conjunctiva pink. ABSENT: scleral icterus Ear exam: PRESENT: normal external ear exam. ABSENT: bleeding, drainage Mouth exam: PRESENT: moist, tongue midline Neck exam: ABSENT: carotid bruit, JVD, lymphadenopathy Respiratory exam: PRESENT: symmetrical, unlabored, wheezes - Sporadic expiratory wheezes, other - Coarse breath sounds bilaterally. ABSENT: accessory muscle use, rales, rhonchi, tachypnea Cardiovascular exam: PRESENT: RRR, +S1, +S2. ABSENT: diastolic murmur, irregular rhythm, systolic murmur GI/Abdominal exam: PRESENT: normal bowel sounds, soft. ABSENT: distended, guarding, tenderness Rectal exam: PRESENT: deferred Gentrourinary exam: ABSENT: indwelling catheter Extremities exam: ABSENT: pedal edema Musculoskeletal exam: PRESENT: ambulatory, normal inspection. ABSENT: deformity Neurological exam: PRESENT: alert, awake, oriented to person, oriented to place, oriented to situation, CN II-XII grossly intact. ABSENT: altered Psychiatric exam: PRESENT: appropriate affect. ABSENT: agitated, anxious Focused psych exam: ABSENT: delusional, paranoid, restlessness Skin exam: PRESENT: dry, normal color, warm. ABSENT: rash Results Laboratory Results: 10/03/19 05:24 10/03/19 05:24 10/02/19 10/02/19 10/02/19 12:50 12:50 12:50 WBC 5.4 RBC 3.72 Hgb 11.4 L Hct 32.9 L MCV 89 MCH 30.8 MCHC 34.7 RDW 14.9 H Plt Count 346 Seg Neutrophils % 70.5 Sodium 122.5 L Potassium 5.2 H Chloride 93 L Carbon Dioxide 23 Anion Gap 7 BUN 18 Creatinine 0.44 L Est GFR ( Amer) > 60 Glucose 95 Serum Osmolality 256 L Calcium 8.9 Magnesium 1.7 Total Bilirubin 0.4 AST 74 H Alkaline Phosphatase 54 Total Protein 5.9 L Albumin 3.1 L Urine Color Urine Appearance Urine pH Ur Specific [place] Urine Protein Urine Glucose (UA) Urine Ketones Urine Blood Urine RBC (Auto) Urine Osmolality 10/02/19 10/02/19 10/02/19 14:48 14:48 21:31 WBC RBC Hgb Hct MCV MCH MCHC RDW Plt Count Seg Neutrophils % Sodium 131.8 L Potassium Chloride Carbon Dioxide Anion Gap BUN Creatinine Est GFR ( Amer) Glucose Serum Osmolality Calcium Magnesium Total Bilirubin AST Alkaline Phosphatase Total Protein Albumin Urine Color YELLOW Urine Appearance CLEAR Urine pH 5.0 Ur Specific [place] 1.015 Urine Protein NEGATIVE Urine Glucose (UA) NEGATIVE Urine Ketones NEGATIVE Urine Blood NEGATIVE Urine RBC (Auto) 0 Urine Osmolality 561 10/03/19 10/03/19 05:24 05:24 WBC 4.9 RBC 3.94 Hgb 11.9 L Hct 35.0 L MCV 89 MCH 30.3 MCHC 34.1 RDW 14.9 H Plt Count 380 Seg Neutrophils % 59.5 Sodium 133.7 L Potassium 4.7 Chloride 102 Carbon Dioxide 27 Anion Gap 5 BUN 12 Creatinine 0.58 Est GFR ( Amer) > 60 Glucose 92 Serum Osmolality Calcium 9.1 Magnesium 1.7 Total Bilirubin AST Alkaline Phosphatase Total Protein Albumin Urine Color Urine Appearance Urine pH Ur Specific [place] Urine Protein Urine Glucose (UA) Urine Ketones Urine Blood Urine RBC (Auto) Urine Osmolality Assessment and Plan - Diagnosis (1) Hyponatremia Is this a current diagnosis for this admission?: Yes Plan: 10/02/2019 Dr. Burroughs has been treating the patient for chronic hyponatremia. It was felt to be due to excessive beer intake initially. Patient reports that she is no longer drinking beer. Her sodium was still only 122. Dr. Burroughs had her on demeclocycline but this has not been as effective as she had hoped. The patient is being hospitalized to initiate a trial of tolvaptan. We will need to monitor her serum sodium correction as well as LFTs for potential adverse effect of the medication. 10/03/2019 Serum sodium is improved significantly. We do not want to overcorrect too quickly. Nephrology has stopped the tolvaptan and discontinued the IV fluid. H er blood pressure has responded to the normal saline and is improved. We will check a serum sodium later today and tomorrow. Anticipate discharge tomorrow with tolvaptan twice weekly and follow-up with nephrology. (2) Hypertension Qualifiers: Hypertension type: essential hypertension Qualified Code(s): I10 - Essential (primary) hypertension Is this a current diagnosis for this admission?: Yes Plan: 10/02/2019 Patient is normally on amlodipine and lisinopril. Her blood pressure was actually low at the time of admission. She will be getting IV fluids. I did put parameters to hold the amlodipine and lisinopril if her blood pressure was below a certain level. Continue to monitor vital signs. 10/03/2019 Blood pressure is better. No longer hypotensive. Continue current regimen. (3) Hyperkalemia Is this a current diagnosis for this admission?: Yes Plan: 10/02/2019 The hyperkalemia is mild. She will be getting intravenous fluids and therefore no Kayexalate at this time but I would rather repeat her chemistries in the morning. In addition she does take lisinopril for her hypertension and this could be contributing to elevated serum potassium levels. 10/03/2019 With IV fluids given for low blood pressure (4) Allergic rhinitis Qualifiers: Allergic rhinitis trigger: unspecified Allergic rhinitis seasonality: unspecified Qualified Code(s): J30.9 - Allergic rhinitis, unspecified Is this a current diagnosis for this admission?: Yes Plan: 10/02/2019 The patient is on Flonase and Singulair. She reports no inhaler usage at home. She still smokes 1 pack of cigarettes daily. This may be contributing to the chronic rhinitis. We will continue the Flonase and Singulair at this time. 10/03/2019 Continue current regimen (5) Hypoalbuminemia Is this a current diagnosis for this admission?: Yes Plan: 10/02/2019 Mildly decreased albumin. No need for intravenous albumin at this time. We will continue to monitor. Possibly related to chronic illness, her history of a lcohol use and elevated transaminases. 10/03/2019 Continue to monitor (6) Insomnia Qualifiers: Insomnia type: unspecified Qualified Code(s): G47.00 - Insomnia, unspecified Is this a current diagnosis for this admission?: Yes Plan: 10/02/2019 The patient reports a long history of difficulty sleeping. We will continue her trazodone 50 mg at bedtime if needed. Zyprexa can also have a sedating effect. 10/03/2019 Continue current medications (7) Right wrist pain Is this a current diagnosis for this admission?: Yes Plan: 10/02/2019 From recent carpal tunnel surgery. We will continue the oxycodone at 5 mg. The patient also has gabapentin available as needed. If the oxycodone is not effective I will resume the gabapentin. 10/03/2019 We will continue gabapentin as a scheduled medication since it is more effective this way. (8) Chronic depression Is this a current diagnosis for this admission?: Yes Plan: 10/02/2019 Continue bupropion and Zyprexa for an anxiety component 10/03/2019 No changes at this time (9) Tobacco dependence due to cigarettes Is this a current diagnosis for this admission?: Yes Plan: 10/02/2019 Nicotine patch 10/03/2019 Continue nicotine patch (10) Gastroesophageal reflux disease Qualifiers: Esophagitis presence: without esophagitis Qualified Code(s): K21.9 - Gastro-esophageal reflux disease without esophagitis Is this a current diagnosis for this admission?: Yes Plan: 10/02/2019 Continue Protonix 10/03/2019 Currently asymptomatic. Continue proton pump inhibitor therapy (11) Elevated transaminase level Is this a current diagnosis for this admission?: Yes Plan: 10/02/2019 We will monitor LFTs especially since the potential side effect of tolvaptan is liver irritation. 10/03/2019 Elevated at admission. Will recheck tomorrow to see if tolvaptan has had an adverse effect. (12) COPD (chronic obstructive pulmonary disease) Qualifiers: COPD type: unspecified COPD Qualified Code(s): J44.9 - Chronic obstructive pulmonary disease, unspecified Is this a current diagnosis for this admission?: Yes Plan: 10/03/2019 The patient most likely has COPD. She reports a smoker's cough. She also notes some chest congestion. She was wheezy on exam. I am going to start scheduled and as needed guaifenesin and initiate therapy with Breo inhaler. As needed albuterol is available as well. - Plan Summary Summary: 10/03/2019 I did call the patient's daughter Holley. We went over the patient's hospital course. We reviewed the plan for discharge. We also spent a significant amount of time reviewing her pain medications with her addictive personality and the need to avoid ongoing use of oxycodone. We also talked about nonprescription analgesics and with her hypertension she should avoid nonsteroidal anti- inflammatory medications and her liver enzymes are slightly elevated and so she should avoid acetaminophen. I did explain to the patient's daughter that intermittent or sporadic use of either is not necessarily a problem with the constant use that we will get the patient into trouble and so she is going to try and modify her regimen that works for the patient. They are also going to try scheduled gabapentin to see if that helps. - Time Time Spent with patient: 25-34 minutes Medications reviewed and adjusted accordingly: Yes Anticipated discharge: Home Within: within 24 hours
[2019-10-03] MEDS ORDERED: ALBUTEROL SULFATE HFA (90 MCG/PUFF) 200 PUFF/8.5 GM MDI IH PRN (11:44)
--- NOTE | 2019-10-03 12:06 | RADIOLOGY REPORT (SQ) ---
EXAM DESCRIPTION: U/S ABDOMEN COMPLETE W/O DOP IMAGES COMPLETED DATE/TIME: 10/03/2019 10:47 am REASON FOR STUDY: renal cysts and hepatitis COMPARISON: 11/14/2010 ultrasound, CT PET 03/04/2017. TECHNIQUE: Dynamic and static grayscale images acquired of the abdomen and recorded on PACS. Additio nal selected color Doppler and spectral images recorded. Note: Study does not meet criteria for complete doppler/duplex scan LIMITATIONS: None. FINDINGS: PANCREAS: No masses. Visualized pancreatic duct normal caliber. LIVER: No masses. Echotexture normal. LIVER VASCULATURE: Normal directional flow of the main portal vein and hepatic veins. GALLBLADDER: No stones. Normal wall thickness. No pericholecystic fluid. ULTRASOUND-DETECTED ESCOBAR'S SIGN: Negative. INTRAHEPATIC DUCTS AND COMMON DUCT: CBD and intrahepatic ducts normal caliber. No filling defects. INFERIOR VENA CAVA: Normal flow. AORTA: No aneurysm. RIGHT KIDNEY: Normal in size measuring 12.4 cm. Normal echogenicity. No discrete solid masses. Multiple simple appearing renal cysts. Largest cyst within the lower pole has a thin septation and m easures 5.2 cm, grossly stable compared to prior PET-CT (Bosniak 2). No hydronephrosis. No calcif ications. LEFT KIDNEY: Normal size measuring 10.8 cm. There is a 3.7 cm cyst. Normal echogenicity. No rashmi id or suspicious masses. No hydronephrosis. No calcifications. SPLEEN: Normal size measuring 9.7 cm. No focal lesions. PERITONEAL AND PLEURAL SPACES: No ascites or effusions. OTHER: No other significant finding. IMPRESSION: 1. No evidence of acute intra-abdominal process as visualized. 2. Grossly stable bilateral renal cysts. TECHNICAL DOCUMENTATION: JOB ID: [id number] 2010 [employer]- All Rights Reserved Reading location - IP/workstation name: [email or web address]
[2019-10-03] MEDS: FLUTICASONE/VILANTEROL 100-25 MCG/DOSE IH SCH (14:35)
--- NOTE | 2019-10-03 16:35 | PDOC PROGRESS REPORT ---
Subjective Progress Note for:: 10/03/19 Reason For Visit: Patient seen today. She is doing well. She denies any specific complaints of chest pain, shortness of breath, headaches or focal deficits. Labs and medications were reviewed that shows improving sodium on current treatment guidelines. She says her fluid intake is between 70 and 90 ounces a day which includes 3-4 bottles of tomato juice with high sodium. She has received so far tolvaptan 1 dose yesterday and 1 this morning along with IV fluids. She says s he her last drink of beer was 3 months ago. She admits to the fact that she has not been very tolerant to the demeclocycline. Physical Exam Vital Signs: Temp Pulse Resp BP Pulse Ox 98.6 F 104 H 16 134/71 H 93 10/03/19 07:35 10/03/19 08:47 10/03/19 08:47 10/03/19 07:35 10/03/19 08:47 Intake & Output 10/02/19 10/03/19 10/04/19 06:59 06:59 06:59 Intake Total 1741 356 Output Total 5350 1200 Balance -3609 -844 Weight 58.8 kg General appearance: PRESENT: no acute distress Respiratory exam: PRESENT: clear to auscultation zamzam Cardiovascular exam: PRESENT: +S1, +S2. ABSENT: systolic murmur GI/Abdominal exam: PRESENT: normal bowel sounds, soft. ABSENT: organomegaly, tenderness Extremities exam: ABSENT: pedal edema Neurological exam: PRESENT: alert, awake, oriented to person, oriented to place, oriented to time Results Laboratory Results: 10/03/19 05:24 10/03/19 05:24 10/02/19 10/02/19 10/03/19 14:48 21:31 05:24 WBC 4.9 RBC 3.94 Hgb 11.9 L Hct 35.0 L MCV 89 MCH 30.3 MCHC 34.1 RDW 14.9 H Plt Count 380 Seg Neutrophils % 59.5 Sodium 131.8 L Potassium Chloride Carbon Dioxide Anion Gap BUN Creatinine Est GFR ( Amer) Glucose Calcium Magnesium Urine Osmolality 561 10/03/19 05:24 WBC RBC Hgb Hct MCV MCH MCHC RDW Plt Count Seg Neutrophils % Sodium 133.7 L Potassium 4.7 Chloride 102 Carbon Dioxide 27 Anion Gap 5 BUN 12 Creatinine 0.58 Est GFR ( Amer) > 60 Glucose 92 Calcium 9.1 Magnesium 1.7 Urine Osmolality Impressions: Abdomen Ultrasound 10/03/19 00:00 IMPRESSION: 1. No evidence of acute intra-abdominal process as visualized. 2. Grossly stable bilateral renal cysts. Assessment & Plan - Diagnosis (1) Hyponatremia Is this a current diagnosis for this admission?: Yes Plan: Secondary to SIADH. Advised her to cut back her fluid intake to around 50 ounces since she is going to go home on tolvaptan 15 mg Mondays and Fridays. Advised to follow-up with Dr. Burroughs in about 14 days time with labs to be done 4 to 5 days prior to her visit. Advised on the adverse effects of tolvaptan especially if she limits her fluid intake drastically. (2) Elevated transaminase level Is this a current diagnosis for this admission?: Yes Plan: Unsure the exact etiology. I did order abdominal ultrasound to include the liver to see if she had any cirrhotic changes but was negative. She might need to have a hepatitis work-up. (3) Hypertension Qualifiers: Hypertension type: essential hypertension Qualified Code(s): I10 - Essential (primary) hypertension Is this a current diagnosis for this admission?: Yes Plan: Controlled on current medications.
[2019-10-03 17:30] LABS: ANION GAP 6 (5-19); BLOOD UREA NITROGEN 11 mg/dL (7-20); CALCIUM 9.2 mg/dL (8.4-10.2); CARBON DIOXIDE 27 mmol/L (22-30); CHLORIDE 100 mmol/L (98-107); GLUCOSE 125 mg/dL (75-110); POTASSIUM 4.4 mmol/L (3.6-5.0)
[2019-10-03] MEDS: GUAIFENESIN 600 MG TABLET.SA PO SCH (21:34)
[2019-10-03] MEDS: MONTELUKAST SODIUM 10 MG TABLET PO SCH (21:34)
[2019-10-03] MEDS: ATORVASTATIN CALCIUM 20 MG TABLET PO SCH ×2 (21:34→21:43)
[2019-10-03] MEDS: LISINOPRIL 10 MG TABLET PO SCH (21:34)
[2019-10-03] MEDS: OLANZAPINE 2.5 MG TABLET PO SCH (21:34)
[2019-10-04 05:30] LABS: ALBUMIN 2.9 g/dL (3.5-5.0); ALKALINE PHOSPHATASE 55 U/L (38-126); ASPARTATE AMINO TRANSFERASE 56 U/L (14-36); BILIRUBIN,TOTAL 0.3 mg/dL (0.2-1.3); BLOOD UREA NITROGEN 14 mg/dL (7-20); CALCIUM 9.4 mg/dL (8.4-10.2); CARBON DIOXIDE 30 mmol/L (22-30); GLUCOSE 111 mg/dL (75-110); POTASSIUM 4.8 mmol/L (3.6-5.0); TOTAL PROTEIN 5.6 g/dL (6.3-8.2)
[2019-10-04 05:36] LABS: CHLORIDE 98 mmol/L (98-107)
[2019-10-04 05:37] LABS: ANION GAP 4 (5-19)
[2019-10-04] MEDS: HEPARIN SOD (PORCINE) 5,000 UNIT/ML 1 ML VIAL SUBCUT SCH ×2 (06:00→14:14)
[2019-10-04] MEDS: OXYCODONE HCL IR 5 MG TABLET PO PRN (06:03)
[2019-10-04] MEDS: PANTOPRAZOLE SODIUM 40 MG TABLET.DR PO SCH (06:03)
[2019-10-04] MEDS: GABAPENTIN 300 MG CAPSULE PO SCH ×2 (06:03→14:11)
[2019-10-04] MEDS: FLUTICASONE NASAL SPRAY 50 MCG/SPRY 120 SPRAY/16 GM NASL SCH (10:51)
[2019-10-04] MEDS: FOLIC ACID 1 MG TABLET PO SCH (10:51)
[2019-10-04] MEDS: DOCUSATE SODIUM 100 MG CAPSULE PO SCH (10:51)
[2019-10-04] MEDS: CETIRIZINE 10 MG TABLET PO SCH (10:51)
[2019-10-04] MEDS: CYANOCOBALAMIN (VITAMIN B-12) 1,000 MCG TABLET PO SCH (10:51)
[2019-10-04] MEDS: BUPROPION HCL 75 MG TABLET PO SCH (10:51)
[2019-10-04] MEDS: GUAIFENESIN 600 MG TABLET.SA PO SCH (10:51)
[2019-10-04] MEDS: CHOLECALCIFEROL (D3) 1,000 UNIT (25 MCG) TABLET PO SCH (10:51)
[2019-10-04] MEDS: FLUTICASONE/VILANTEROL 100-25 MCG/DOSE IH SCH (10:52)
[2019-10-04] MEDS: AMLODIPINE BESYLATE 5 MG TABLET PO SCH (12:04)
--- NOTE | 2019-10-04 14:03 | PDOC DISCHARGE SUMMARY ---
Impression - Admit/DC Date/PCP Admission Date/Primary Care Provider: 10/02/19 10:23 MAHAD SALAZAR MD Discharge Date: 10/04/19 - Discharge Diagnosis (1) Hyponatremia Is this a current diagnosis for this admission?: Yes (2) Hypertension Is this a current diagnosis for this admission?: Yes (3) Hyperkalemia Is this a current diagnosis for this admission?: Yes (4) Allergic rhinitis Is this a current diagnosis for this admission?: Yes (5) Hypoalbuminemia Is this a current diagnosis for this admission?: Yes (6) Insomnia Is this a current diagnosis for this admission?: Yes (7) Right wrist pain Is this a current diagnosis for this admission?: Yes (8) Chronic depression Is this a current diagnosis for this admission?: Yes (9) Tobacco dependence due to cigarettes Is this a current diagnosis for this admission?: Yes (10) Gastroesophageal reflux disease Is this a current diagnosis for this admission?: Yes (11) Elevated transaminase level Is this a current diagnosis for this admission?: Yes (12) COPD (chronic obstructive pulmonary disease) Is this a current diagnosis for this admission?: Yes - Assessment Summary: 10/03/2019 I did call the patient's daughter Holley. We went over the patient's hospital course. We reviewed the plan for discharge. We also spent a significant amount of time reviewing her pain medications with her addictive personality and the need to avoid ongoing use of oxycodone. We also talked about nonprescription analgesics and with her hypertension she should avoid nonsteroidal anti- inflammatory medications and her liver enzymes are slightly elevated and so she should avoid acetaminophen. I did explain to the patient's daughter that intermittent or sporadic use of either is not necessarily a problem with the constant use that we will get the patient into trouble and so she is going to try and modify her regimen that works for the patient. They are also going to try scheduled gabapentin to see if that helps. - Additional Information Resuscitation Status: Full Code Referrals: MAHAD SALAZAR MD [Primary Care Provider] - 10/22/19 8:00 am (DR SALAZAR'S OFFICE WILL CONTACT THE PATIENT WITH EARLIER APPT.) Prescriptions: Fluticasone/Vilanterol [Breo 100-25 Mcg Ellipta 14 Dose/Dpi] 1 inh IH DAILY #1 inhaler Atorvastatin Calcium [Lipitor 20 mg Tablet] 20 mg PO QHS 15 Days #15 tablet Home Medications: Cetirizine HCl [Zyrtec 10 mg Tablet] 10 mg PO DAILYP PRN 02/28/14 Montelukast Sodium [Singulair 10 mg Tablet] 10 mg PO QHS 02/28/14 Folic Acid [Folvite 1 mg Tablet] 1 mg PO DAILY #30 tablet 03/03/14 Amlodipine Besylate 5 mg PO DAILY 04/15/15 Lisinopril 20 mg PO QHS 04/15/15 Olanzapine [Zyprexa 2.5 mg Tablet] 7.5 mg PO QHS 04/15/15 Bupropion HCl [Bupropion Xl] 150 mg PO DAILY 07/08/19 Cyanocobalamin (Vitamin B-12) [Vitamin B-12 1000 mcg Tablet] 1,000 mcg PO DAILY 07/08/19 Fluticasone Propionate [Flonase Nasal [place] 50 Mcg/Greenfield 16 gm] 1 spray NAREB Q12 07/08/19 Aspirin [Ecotrin 81 mg EC Tablet] 81 mg PO DAILY tabec 07/12/19 Vanderwagen-3/Dha/Epa/Fish Oil [Fish Oil 1,000 mg Softgel] 1,000 mg PO DAILY 10/02/19 Omeprazole 40 mg PO QAM 10/02/19 Oxycodone HCl [Oxy-Ir 5 mg Tablet] 5 mg PO Q6HP PRN 10/02/19 Trazodone HCl 50 mg PO QHS 10/02/19 Amlodipine Besylate [Norvasc 5 mg Tablet] 5 mg PO DAILY tablet 10/04/19 Atorvastatin Calcium [Lipitor 20 mg Tablet] 20 mg PO QHS 15 Days #15 tablet 10/04/19 Cetirizine HCl [Zyrtec 10 mg Tablet] 10 mg PO DAILY tablet 10/04/19 Cholecalciferol (Vitamin D3) [Vitamin D3 1000 Unit Tablet] 1,000 unit PO DAILY tablet 10/04/19 Cyanocobalamin (Vitamin B-12) [Vitamin B-12 1000 mcg Tablet] 2,000 mcg PO DAILY tablet 10/04/19 Fluticasone Propionate [Flonase Nasal [place] 50 Mcg/Greenfield 16 gm] 1 spray NASL Q12 spray.pump 10/04/19 Fluticasone/Vilanterol [Breo 100-25 Mcg Ellipta 14 Dose/Dpi] 1 inh IH DAILY #1 inhaler 10/04/19 Folic Acid [Folvite 1 mg Tablet] 1 mg PO DAILY tablet 10/04/19 Gabapentin [Neurontin 300 mg Capsule] 300 mg PO Q8 capsule 10/04/19 Guaifenesin [Mucinex Sr 600 mg Tablet.sa] 600 mg PO Q12 tablet.sa 10/04/19 Lisinopril [Prinivil 10 mg Tablet] 20 mg PO QHS tablet 10/04/19 Montelukast Sodium [Singulair 10 mg Tablet] 10 mg PO QHS tablet 10/04/19 Nicotine [Nicoderm 21 mg/24 Hr Transderm Patch] 1 each TD DAILYP PRN patch.td24 10/04/19 Olanzapine [Zyprexa 2.5 mg Tablet] 7.5 mg PO QHS tablet 10/04/19 Oxycodone HCl [Oxy-Ir 5 mg Tablet] 5 mg PO Q8HP PRN tablet 10/04/19 Polyethylene Glycol 3350 [Miralax Powder 17 gm/Packet] 17 gm PO DAILYP PRN powd.pack 10/04/19 Trazodone HCl [Desyrel 50 mg Tablet] 50 mg PO HSP PRN tablet 10/04/19 History of Present Illiness History of Present Illness: SAE NORRIS is a 74 year old female referred by Dr. Salazar for direct admission to initiate tolvaptan therapy. She has a history of hyponatremia as well as hypertension, depression, insomnia, gastroesophageal reflux disease, allergies and a smokers cough. She states that she felt woozy earlier and her blood pressure in fact is low today. She will be admitted and monitored with daily laboratory studies for the initiation of tolvaptan therapy. Her demeclocycline will be discontinued. We will continue the remainder of her medications including pain medications for a recent right carpal tunnel surgery. Hospital Course Hospital Course: (1) Hyponatremia Is this a current diagnosis for this admission?: Yes Plan: 10/02/2019 Dr. Salazar has been treating the patient for chronic hyponatremia. It was felt to be due to excessive beer intake initially. Patient reports that she is no longer drinking beer. Her sodium was still only 122. Dr. Salazar had her on demeclocycline but this has not been as effective as she had hoped. The patient is being hospitalized to initiate a trial of tolvaptan. We will need to monitor her serum sodium correction as well as LFTs for potential adverse effect of the medication. 10/03/2019 Serum sodium is improved significantly. We do not want to overcorrect too quickly. Nephrology has stopped the tolvaptan and discontinued the IV fluid. Her blood pressure has responded to the normal saline and is improved. We will check a serum sodium later today and tomorrow. Anticipate discharge tomorrow with tolvaptan twice weekly and follow-up with nephrology. (2) Hypertension Qualifiers: Hypertension type: essential hypertension Qualified Code(s): I10 - Essential (primary) hypertension Is this a current diagnosis for this admission?: Yes Plan: 10/02/2019 Patient is normally on amlodipine and lisinopril. Her blood pressure was actually low at the time of admission. She will be getting IV fluids. I did put parameters to hold the amlodipine and lisinopril if her blood pressure was below a certain level. Continue to monitor vital signs. 10/03/2019 Blood pressure is better. No longer hypotensive. Continue current regimen. (3) Hyperkalemia Is this a current diagnosis for this admission?: Yes Plan: 10/02/2019 The hyperkalemia is mild. She will be getting intravenous fluids and therefore no Kayexalate at this time but I would rather repeat her chemistries in the morning. In addition she does take lisinopril for her hypertension and this could be contributing to elevated serum potassium levels. 10/03/2019 With IV fluids given for low blood pressure (4) Allergic rhinitis Qualifiers: Allergic rhinitis trigger: unspecified Allergic rhinitis seasonality: unspecified Qualified Code(s): J30.9 - Allergic rhinitis, unspecified Is this a current diagnosis for this admission?: Yes Plan: 10/02/2019 The patient is on Flonase and Singulair. She reports no inhaler usage at home. She still smokes 1 pack of cigarettes daily. This may be contributing to the chronic rhinitis. We will continue the Flonase and Singulair at this time. 10/03/2019 Continue current regimen (5) Hypoalbuminemia Is this a current diagnosis for this admission?: Yes Plan: 10/02/2019 Mildly decreased albumin. No need for intravenous albumin at this time. We will continue to monitor. Possibly related to chronic illness, her history of alcohol use and elevated transaminases. 10/03/2019 Continue to monitor (6) Insomnia Qualifiers: Insomnia type: unspecified Qualified Code(s): G47.00 - Insomnia, unspecified Is this a current diagnosis for this admission?: Yes Plan: 10/02/2019 The patient reports a long history of difficulty sleeping. We will continue her trazodone 50 mg at bedtime if needed. Zyprexa can also have a sedating effect. 10/03/2019 Continue current medications (7) Right wrist pain Is this a current diagnosis for this admission?: Yes Plan: 10/02/2019 From recent carpal tunnel surgery. We will continue the oxycodone at 5 mg. The patient also has gabapentin available as needed. If the oxycodone is not effective I will resume the gabapentin. 10/03/2019 We will continue gabapentin as a scheduled medication since it is more effective this way. (8) Chronic depression Is this a current diagnosis for this admission?: Yes Plan: 10/02/2019 Continue bupropion and Zyprexa for an anxiety component 10/03/2019 No changes at this time (9) Tobacco dependence due to cigarettes Is this a current diagnosis for this admission?: Yes Plan: 10/02/2019 Nicotine patch 10/03/2019 Continue nicotine patch (10) Gastroesophageal reflux disease Qualifiers: Esophagitis presence: without esophagitis Qualified Code(s): K21.9 - Gastro-esophageal reflux disease without esophagitis Is this a current diagnosis for this admission?: Yes Plan: 10/02/2019 Continue Protonix 10/03/2019 Currently asymptomatic. Continue proton pump inhibitor therapy (11) Elevated transaminase level Is this a current diagnosis for this admission?: Yes Plan: 10/02/2019 We will monitor LFTs especially since the potential side effect of tolvaptan is liver irritation. 10/03/2019 Elevated at admission. Will recheck tomorrow to see if tolvaptan has had an adverse effect. (12) COPD (chronic obstructive pulmonary disease) Qualifiers: COPD type: unspecified COPD Qualified Code(s): J44.9 - Chronic obstructive pulmonary disease, unspecified Is this a current diagnosis for this admission?: Yes Plan: 10/03/2019 The patient most likely has COPD. She reports a smoker's cough. She also notes some chest congestion. She was wheezy on exam. I am going to start scheduled and as needed guaifenesin and initiate therapy with Breo inhaler. As needed albuterol is available as well. Physical Exam Vital Signs: Temp Pulse Resp BP Pulse Ox 97.5 F 102 H 16 108/45 L 92 10/04/19 11:24 10/04/19 11:42 10/04/19 11:42 10/04/19 11:24 10/04/19 11:42 Intake & Output 10/03/19 10/04/19 10/05/19 06:59 06:59 06:59 Intake Total 1741 1308 592 Output Total 5537 3488 Balance -7797 -9187 596 Weight 58.8 kg 58.8 kg General appearance: PRESENT: no acute distress Respiratory exam: PRESENT: clear to auscultation zamzam Cardiovascular exam: PRESENT: RRR, +S1, +S2 GI/Abdominal exam: PRESENT: normal bowel sounds, soft. ABSENT: tenderness Results Laboratory Results: WBC 4.9 10^3/uL (4.0-10.5) 10/03/19 05:24 RBC 3.94 10^6/uL (3.72-5.28) 10/03/19 05:24 Hgb 11.9 g/dL (12.0-15.5) L 10/03/19 05:24 Hct 35.0 % (36.0-47.0) L 10/03/19 05:24 MCV 89 fl (80-97) 10/03/19 05:24 MCH 30.3 pg (27.0-33.4) 10/03/19 05:24 MCHC 34.1 g/dL (32.0-36.0) 10/03/19 05:24 RDW 14.9 % (11.5-14.0) H 10/03/19 05:24 Plt Count 380 10^3/uL (150-450) 10/03/19 05:24 Lymph % (Auto) 27.7 % (13-45) 10/03/19 05:24 Lyman % (Auto) 7.9 % (3-13) 10/03/19 05:24 Eos % (Auto) 3.9 % (0-6) 10/03/19 05:24 Baso % (Auto) 1.0 % (0-2) 10/03/19 05:24 Absolute Neuts (auto) 2.9 10^3/uL (1.7-8.2) 10/03/19 05:24 Absolute Lymphs (auto) 1.4 10^3/uL (0.5-4.7) 10/03/19 05:24 Absolute Monos (auto) 0.4 10^3/uL (0.1-1.4) 10/03/19 05:24 Absolute Eos (auto) 0.2 10^3/uL (0.0-0.6) 10/03/19 05:24 Absolute Basos (auto) 0.1 10^3/uL (0.0-0.2) 10/03/19 05:24 Seg Neutrophils % 59.5 % (42-78) 10/03/19 05:24 Sodium 132.1 mmol/L (137-145) L 10/04/19 04:10 Potassium 4.8 mmol/L (3.6-5.0) 10/04/19 04:10 Chloride 98 mmol/L (98-107) 10/04/19 04:10 Carbon Dioxide 30 mmol/L (22-30) 10/04/19 04:10 Anion Gap 4 (5-19) L 10/04/19 04:10 BUN 14 mg/dL (7-20) 10/04/19 04:10 Creatinine 0.60 mg/dL (0.52-1.25) 10/04/19 04:10 Est GFR ( Amer) > 60 (>60) 10/04/19 04:10 Est GFR (MDRD) Non-Af > 60 (>60) 10/04/19 04:10 Glucose 111 mg/dL (75-110) H 10/04/19 04:10 Serum Osmolality 256 mOsm/kg (275-301) L 10/02/19 12:50 Calcium 9.4 mg/dL (8.4-10.2) 10/04/19 04:10 Magnesium 1.7 mg/dL (1.6-2.3) 10/03/19 05:24 Total Bilirubin 0.3 mg/dL (0.2-1.3) 10/04/19 04:10 Direct Bilirubin 0.0 mg/dL (0.0-0.4) 10/04/19 04:10 Neonat Total Bilirubin Not Reportable 10/04/19 04:10 Neonat Direct Bilirubin Not Reportable 10/04/19 04:10 Neonat Indirect Bili Not Reportable 10/04/19 04:10 AST 56 U/L (14-36) H 10/04/19 04:10 ALT 61 U/L (<35) H 10/04/19 04:10 Alkaline Phosphatase 55 U/L (38-126) 10/04/19 04:10 Total Protein 5.6 g/dL (6.3-8.2) L 10/04/19 04:10 Albumin 2.9 g/dL (3.5-5.0) L 10/04/19 04:10 Urine Color YELLOW 10/02/19 14:48 Urine Appearance CLEAR 10/02/19 14:48 Urine pH 5.0 (5.0-9.0) 10/02/19 14:48 Ur Specific [place] 1.015 10/02/19 14:48 Urine Protein NEGATIVE mg/dL (NEGATIVE) 10/02/19 14:48 Urine Glucose (UA) NEGATIVE mg/dL (NEGATIVE) 10/02/19 14:48 Urine Ketones NEGATIVE mg/dL (NEGATIVE) 10/02/19 14:48 Urine Blood NEGATIVE (NEGATIVE) 10/02/19 14:48 Urine Nitrite (Reflex) NEGATIVE (NEGATIVE) 10/02/19 14:48 Urine Bilirubin NEGATIVE (NEGATIVE) 10/02/19 14:48 Urine Urobilinogen NEGATIVE mg/dL (<2.0) 10/02/19 14:48 Leukocyte Esterase Rfl NEGATIVE (NEGATIVE) 10/02/19 14:48 Urine RBC (Auto) 0 /HPF 10/02/19 14:48 U Hyaline Cast (Auto) 1 /LPF 10/02/19 14:48 Urine WBC (Reflex) 2 /HPF 10/02/19 14:48 Squamous Epi Cells Auto 1 /HPF 10/02/19 14:48 Urine Mucus (Auto) RARE /LPF 10/02/19 14:48 Urine Osmolality 561 mOsm/kg (300-900) 10/02/19 14:48 Urine Sodium 87 mmol/L (30-90) 10/02/19 14:48 Urine Ascorbic Acid 40 (NEGATIVE) H 10/02/19 14:48 Impressions: Abdomen Ultrasound 10/03/19 00:00 IMPRESSION: 1. No evidence of acute intra-abdominal process as visualized. 2. Grossly stable bilateral renal cysts. Plan Health Concerns: Compliant with fluid restriction as well as medication regimen. She needs to continue to abstain from beer. Plan of Treatment: Discontinue demeclocycline and start tolvaptan 15 mg on Sunday and Sunday. This will likely be adjusted by nephrology based on her serum chemistries. In addition, an inhaler was started for her COPD. Goals: Consistent control of her serum sodium Time Spent: Greater than 30 Minutes Stroke Is this a Stroke Patient?: No Acute Heart Failure - Is this a Heart Failure Patient?: No
[2019-10-04 14:29] VITALS: BP 88/40
== END 2019-10-04 15:31 | disposition home or self-care (01) | DRG 641 ==
LOC: 4S 10:23
PROVIDERS: ADMIT Internal Medicine Nephrology; ATTEND Hospitalist
DX: E87.1 Hypo-osmolality and hyponatremia (principal); I10 Essential (primary) hypertension; E87.5 Hyperkalemia; F32.9 Major depressive disorder, single episode, unspecified; J30.9 Allergic rhinitis, unspecified; K21.9 Gastro-esophageal reflux disease without esophagitis; G47.00 Insomnia, unspecified; E78.5 Hyperlipidemia, unspecified; J44.9 Chronic obstructive pulmonary disease, unspecified; M19.90 Unspecified osteoarthritis, unspecified site; F17.210 Nicotine dependence, cigarettes, uncomplicated; Z79.899 Other long term (current) drug therapy; Z82.49 Family history of ischemic heart disease and other diseases of the circulatory system; Z88.8 Allergy status to other drugs, medicaments and biological substances; Z79.82 Long term (current) use of aspirin; M25.531 Pain in right wrist; R74.0 Nonspecific elevation of levels of transaminase and lactic acid dehydrogenase [LDH]
CPT/HCPCS: 36415; 76700; 80048; 80053; 80076; 81001; 83735; 83930; 83935; 84295; 84300; 85025; A9270-GY; J1644; J3490; J7030

== ENCOUNTER 2019-12-05 08:03 | Day surgery (SDC) | payer MEDICARE, OTHER ==
[~2019-12-05 08:03] MED LIST changes: -DEXTROSE 5%-1/2 NORMAL SALINE 1,000 ML IV PRN; +LACTATED RINGERS 1000 ML IV PRN; +LIDOCAINE 0.5% INJ-PF (5 MG/ML) 50 ML SDV SUBCUT PRN; +LIDOCAINE 2% INJ-PF (20 MG/ML) 10 ML AMPUL ONE; +PROPOFOL INJ 200 MG/20 ML VIAL IV ONE
--- NOTE | 2019-12-05 11:08 | Operative Report ---
Operative Report DATE OF SURGERY: 12/05/19 Operative Report: The risks benefits and alternatives of the procedure explained to the patient in detail and informed consent is obtained.A GIF Olympus video scope was inserted into the patient's mouth and hypopharynx, the esophagus is identified intubated and insufflated, the scope was then advanced through the esophagus stomach and duodenum ,retroflexion maneuver is done ,the esophagus stomach and first and second portions of the duodenum examined PREOPERATIVE DIAGNOSIS: History of Han's esophagus POSTOPERATIVE DIAGNOSIS: Gastritis status post biopsy. Small islands of residual Han's status post ablation OPERATION: EGD with radiofrequency ablation. EGD with biopsy SURGEON: BURT ANDREWS ANESTHESIA: LMAC TISSUE REMOVED OR ALTERED: As noted above. COMPLICATIONS: None. ESTIMATED BLOOD LOSS: None. INTRAOPERATIVE FINDINGS: As noted above. PROCEDURE: Patient tolerated the procedure well. No immediate postprocedure complications are noted. Patient is discharged in good condition. Discharge date 12/05/2019. Discharge diet: Regular. Discharge activity: Regular. 2 to 3-week follow-up to discuss findings. Patient is instructed to call the office or proceed to the emergency room should there be any further problems or questions.
[2019-12-05 11:46] VITALS: BP 126/76
== END 2019-12-05 11:45 | disposition home or self-care (01) ==
LOC: END 08:03
PROVIDERS: ATTEND Internal Medicine Gastroenterology
DX: K22.70 Barrett's esophagus without dysplasia (principal); K29.50 Unspecified chronic gastritis without bleeding; Z09 Encounter for follow-up examination after completed treatment for conditions other than malignant neoplasm; K21.9 Gastro-esophageal reflux disease without esophagitis; Z87.19 Personal history of other diseases of the digestive system; I10 Essential (primary) hypertension; Z79.899 Other long term (current) drug therapy; J44.9 Chronic obstructive pulmonary disease, unspecified; F17.210 Nicotine dependence, cigarettes, uncomplicated; Z03.818 Encounter for observation for suspected exposure to other biological agents ruled out
CPT/HCPCS: 43270; 43239; 88305 ×2; 00731; U0003; J2704; J3490; C9803; 731; 87635

== ENCOUNTER 2019-12-09 06:56 | Day surgery (SDC) | payer MEDICARE, OTHER ==
[2019-12-09] MEDS ORDERED: PROPOFOL INJ 200 MG/20 ML VIAL IV ONE (07:47)
--- NOTE | 2019-12-09 09:02 | Operative Report ---
Operative Report DATE OF SURGERY: 12/09/19 Operative Report: The risk, benefits and alternatives of the procedure including the risks of bleeding, perforation requiring surgery have been explained to the patient in detail and informed consent has been obtained. The patient was placed in a left, lateral decubital position. Timeout was called. Propofol medication is administered. A rectal examination is done which did not reveal any masses, tears or fissures. An Olympus videoscope was introduced into the patient's rectum and carefully advanced all the way to the cecum cecum was identified by the usual anatomical landmarks including the ileocecal valve as well as the appendiceal office. Photodocumentation is obtained. Scope was then sequentially pulled back via the various segments of the colon including the ascending colon, hepatic flexure, transverse colon, splenic flexure, descending colon and finally into the rectosigmoid portions of the colon. Retroflexion maneuver is performed. PREOPERATIVE DIAGNOSIS: Change of bowel habits POSTOPERATIVE DIAGNOSIS: Rectal polyp removed via snare polypectomy and retrieved. Sigmoid polyp status post biopsy. Diverticulosis but no evidence of diverticulitis. Internal hemorrhoids OPERATION: Colonoscopy with snare polypectomy. Colonoscopy with biopsy SURGEON: BURT ANDREWS ANESTHESIA: LMAC TISSUE REMOVED OR ALTERED: As noted above. COMPLICATIONS: None. ESTIMATED BLOOD LOSS: None. INTRAOPERATIVE FINDINGS: As noted above. PROCEDURE: Patient tolerated the procedure well. No immediate postprocedure complications are noted. Patient is discharged in good condition. Discharge date 12/09/2019. Discharge diet: Regular. Discharge activity: Regular. 2 to 3-week follow-up to discuss findings. Patient is instructed to call the office or proceed to the emergency room should there be any further problems or questions. Wait on the pathology. 5-year surveillance colonoscopy.
[2019-12-09 09:27] VITALS: BP 140/66
== END 2019-12-09 09:43 | disposition home or self-care (01) ==
LOC: END 06:56
PROVIDERS: ATTEND Internal Medicine Gastroenterology
DX: D12.7 Benign neoplasm of rectosigmoid junction (principal); F17.210 Nicotine dependence, cigarettes, uncomplicated; I10 Essential (primary) hypertension; Z79.899 Other long term (current) drug therapy; K21.9 Gastro-esophageal reflux disease without esophagitis
CPT/HCPCS: 45380; 45385; 88305 ×2; 00811; J2704; 811

== ENCOUNTER → 2020-01-20 | Outpatient (CLI) | payer MEDICARE, OTHER ==
--- NOTE | 2020-01-20 16:25 | RADIOLOGY REPORT (SQ) ---
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 Images stored on PACS. CONTRAST TYPE AND DOSE: 10 mL Prohance. RENAL FUNCTION: Not indicated. ACR Type II contrast agent associated with few, if any, unconfounded cases of NSF LIMITATIONS: None. FINDINGS: ANATOMY: No anomalies. Normal vascular flow voids. Pituitary fossa normal. CSF SPACES: Normal in size and contour. No hemorrhage. CEREBRUM: Sulci and gyri normal in size and contour. Normal white matter signal on FLAIR imaging. No evidence of hemorrhage, mass, or extraaxial fluid collection. No abnormal enhancement post contrast. POSTERIOR FOSSA: No signal alteration. No hemorrhage. No edema, masses, or mass effect. Internal roshni tory canals, cerebellopontine angles, mastoids normal. No enhancing lesions. No abnormal enhancement post contrast. DIFFUSION IMAGING: Negative for acute or subacute infarction. ORBITS: No masses. Globes normal. PARANASAL SINUSES: No fluid levels. Mucosa normal. OTHER: No other significant finding. IMPRESSION: No evidence of metastatic disease. EVIDENCE OF ACUTE STROKE: NO. TECHNICAL DOCUMENTATION: JOB ID: [id number] 2010 [employer]- All Rights Reserved Reading location - IP/workstation name: [email or web address]
== END ==
LOC: RAD 15:16
PROVIDERS: ATTEND Internal Medicine Medical Oncology
DX: C34.92 Malignant neoplasm of unspecified part of left bronchus or lung (principal)
CPT/HCPCS: 82565; 70553; A9576